=== PATIENT | male | born 1945 | race Caucasian/White ===

== ENCOUNTER 2017-10-26 05:56 | Day surgery (SDC) | payer MEDICARE ==
[~2017-10-26] VITALS: Ht 182.9 cm; Wt 103.0 kg
[~2017-10-26 05:56] MED LIST: ALLO300 PO; ATOR40TA PO; Aspirin EC81 MG PO; CLOP75 PO; Fluocinonide-E15 GM TOP; LISI5 PO; METF500 PO; METOPROLOL TART75 MG PO; Nitrostat0.4 MG SL; PANT40 PO; ZYRTEC10 M2 PO
[2017-10-26] MEDS ORDERED: LOSA50 PO (06:45)
== END 2017-10-27 00:10 | disposition home or self-care (01) ==
LOC: ORSCMMR 05:56
PROVIDERS: Surgery
PROC: 0YU50JZ Supplement Right Inguinal Region with Synthetic Substitute, Open Approach (ICD-10-PCS; principal; 2017-10-26 07:30)
DX: K40.90 Unilateral inguinal hernia, without obstruction or gangrene, not specified as recurrent (principal); I10 Essential (primary) hypertension; I25.10 Atherosclerotic heart disease of native coronary artery without angina pectoris; E78.5 Hyperlipidemia, unspecified; E11.9 Type 2 diabetes mellitus without complications; N40.0 Benign prostatic hyperplasia without lower urinary tract symptoms; Z79.82 Long term (current) use of aspirin; Z79.84 Long term (current) use of oral hypoglycemic drugs; Z79.899 Other long term (current) drug therapy
CPT/HCPCS: 82947; C1781; J0690; J1100; J1885; J2250; J2405; J7120

== ENCOUNTER 2017-11-19 19:25 | Observation (INO) | payer MEDICARE ==
[~2017-11-19] VITALS: Ht 182.9 cm; Wt 96.5 kg
[~2017-11-19 19:25] MED LIST changes: +LOSA50 PO
[2017-11-19 20:04] LABS: BASOPHILS ABSOLUTE AUTO 0.02 K/mm3 (0.00-0.23); BASOPHILS PERCENT AUTO 0 % (0-2); EOSINOPHILS ABSOLUTE AUTO 0.19 K/mm3 (0.00-0.68); EOSINOPHILS PERCENT AUTO 3 % (0-6); Hematocrit 39.1 % (37.0-53.0); Hemoglobin 13.4 g/dL (13.5-17.5); IMMATURE GRAN ABSOLUTE AUTO 0.03 K/mm3 (0.00-0.10); IMMATURE GRAN PERCENT AUTO 1 % (0-1); LYMPHOCYTES ABSOLUTE AUTO 1.33 K/mm3 (0.84-5.20); LYMPHOCYTES PERCENT AUTO 24 % (21-46); MONOCYTES ABSOLUTE AUTO 0.59 K/mm3 (0.16-1.47); MONOCYTES PERCENT AUTO 10 % (4-13); Mean Corpuscular HGB 30.2 pg (26.0-34.0); Mean Corpuscular HGB Conc 34.3 g/dL (31.5-36.5); Mean Corpuscular Volume 88 fL (80-100); Mean Platelet Volume 8.4 fL (9.1-12.4); NEUTROPHILS ABSOLUTE AUTO 3.49 K/mm3 (1.96-9.15); NEUTROPHILS PERCENT AUTO 62 % (41-73); Platelet Count 279 K/mm3 (150-400); RDW Coefficient Variation 14.6 % (11.7-14.2); RDW Standard Deviation 46.6 fL (35.1-46.3); Red Blood Cell Count 4.43 M/mm3 (4.30-5.90); White Blood Cell Count 5.65 K/mm3 (4.00-11.30)
[2017-11-19 20:21] LABS: Troponin I <0.015 ng/mL (0.000-0.040)
[2017-11-19 20:29] LABS: Alanine Aminotransfer (ALT/SGP 42 U/L (12-78); Albumin, Blood 3.8 g/dL (3.4-5.0); Albumin/Globulin Ratio 0.9 (0.8-1.8); Alk Phos 96 U/L (50-136); Anion Gap 8 mmol/L (6-16); Aspartate Aminotrans (AST/SGOT 28 U/L (12-37); Bilirubin, Total 0.5 mg/dL (0.1-1.0); Blood Urea Nitrogen 18 mg/dL (8-24); Bun/Creatinine Ratio 15.5 (12.0-20.0); CO2, Blood 25 mmol/L (21-32); Calcium, Blood 8.6 mg/dL (8.5-10.1); Chloride, Blood 103 mmol/L (98-108); Creatinine, Blood 1.16 mg/dL (0.60-1.20); Globulin, Blood 4.3 g/dL (2.2-4.0); Glomerular Filtration Rate >60 (60-); Glucose, Blood 145 mg/dL (70-99); Potassium, Blood 3.9 mmol/L (3.5-5.5); Sodium, Blood 136 mmol/L (136-145); Total Protein, Blood 8.1 g/dL (6.4-8.2)
[2017-11-20] MEDS ORDERED: AMLO10 PO (10:52)
== END 2017-11-20 11:45 | disposition home or self-care (01) ==
LOC: ER 19:25 → MEDS 19:26 → ER 19:26 → MEDS 19:26 → ENPENDDIS 11-20 10:21 → MEDS 11-20 11:45
PROVIDERS: Emergency Medicine
DX: R07.9 Chest pain, unspecified (principal); I25.10 Atherosclerotic heart disease of native coronary artery without angina pectoris; I25.2 Old myocardial infarction; E78.5 Hyperlipidemia, unspecified; E11.9 Type 2 diabetes mellitus without complications; G45.9 Transient cerebral ischemic attack, unspecified; I16.0 Hypertensive urgency; I71.4 Abdominal aortic aneurysm, without rupture; Z79.899 Other long term (current) drug therapy; Z86.010 Personal history of colon polyps; Z85.46 Personal history of malignant neoplasm of prostate; Z90.49 Acquired absence of other specified parts of digestive tract; Z98.890 Other specified postprocedural states; Z98.42 Cataract extraction status, left eye; Z95.5 Presence of coronary angioplasty implant and graft; Z92.3 Personal history of irradiation; Z82.49 Family history of ischemic heart disease and other diseases of the circulatory system; Z88.2 Allergy status to sulfonamides; Z88.1 Allergy status to other antibiotic agents; Z88.8 Allergy status to other drugs, medicaments and biological substances; Z79.84 Long term (current) use of oral hypoglycemic drugs; Z79.02 Long term (current) use of antithrombotics/antiplatelets; Z79.82 Long term (current) use of aspirin
CPT/HCPCS: 36415; 70450; 71046; 80053; 82947; 83880; 84484; 85025; 93005; 93010; 96361; 96374; 96375; 99285; G0378; J0360; J7030

== ENCOUNTER 2019-10-13 15:15 | Inpatient (IN) | payer MEDICARE ==
[~2019-10-13] VITALS: Ht 182.9 cm; Wt 80.6 kg
[~2019-10-13 15:15] MED LIST changes: +AMLO10 PO
[2019-10-13] MEDS ORDERED: EZET10 PO (15:45)
[2019-10-13 15:53] LABS: BASOPHILS ABSOLUTE AUTO 0.08 K/mm3 (0.00-0.23); BASOPHILS PERCENT AUTO 1 % (0-2); EOSINOPHILS ABSOLUTE AUTO 2.66 K/mm3 (0.00-0.68); EOSINOPHILS PERCENT AUTO 21 % (0-6); Hematocrit 35.6 % (37.0-53.0); Hemoglobin 11.1 g/dL (13.5-17.5); IMMATURE GRAN ABSOLUTE AUTO 0.05 K/mm3 (0.00-0.10); IMMATURE GRAN PERCENT AUTO 0 % (0-1); LYMPHOCYTES ABSOLUTE AUTO 0.87 K/mm3 (0.84-5.20); LYMPHOCYTES PERCENT AUTO 7 % (21-46); MONOCYTES ABSOLUTE AUTO 0.85 K/mm3 (0.16-1.47); MONOCYTES PERCENT AUTO 7 % (4-13); Mean Corpuscular HGB 25.7 pg (26.0-34.0); Mean Corpuscular HGB Conc 31.2 g/dL (31.5-36.5); Mean Corpuscular Volume 82 fL (80-100); Mean Platelet Volume 8.5 fL (9.1-12.4); NEUTROPHILS ABSOLUTE AUTO 8.41 K/mm3 (1.96-9.15); NEUTROPHILS PERCENT AUTO 65 % (41-73); Platelet Count 483 K/mm3 (150-400); RDW Standard Deviation 42.4 fL (35.1-46.3); Red Blood Cell Count 4.32 M/mm3 (4.30-5.90); White Blood Cell Count 12.92 K/mm3 (4.00-11.30)
[2019-10-13] MEDS ORDERED: Lopressor 50 mg50 MG PO (16:06)
[2019-10-13] MEDS ORDERED: LOSARTAN POTAS100 MG PO (16:06)
[2019-10-13] MEDS ORDERED: EZETIMIBE10 MG PO (16:07)
[2019-10-13] MEDS ORDERED: ATOR80 PO (16:08)
[2019-10-13] MEDS ORDERED: Metformin HCl1000 MG PO (16:08)
[2019-10-13] MEDS ORDERED: VITAMIN B-121000 MCG (16:09)
[2019-10-13] MEDS ORDERED: VITAMIN B-121000 MCG PO (16:09)
[2019-10-13 16:13] LABS: Alanine Aminotransfer (ALT/SGP 12 U/L (12-78); Albumin, Blood 2.8 g/dL (3.4-5.0); Anion Gap 9 mmol/L (6-16); Aspartate Aminotrans (AST/SGOT 21 U/L (12-37); Blood Urea Nitrogen 10 mg/dL (8-24); Bun/Creatinine Ratio 8.5 (12.0-20.0); CO2, Blood 27 mmol/L (21-32); Chloride, Blood 102 mmol/L (98-108); Creatinine, Blood 1.17 mg/dL (0.60-1.20); Glomerular Filtration Rate >60 (60-); Glucose, Blood 176 mg/dL (70-99); Potassium, Blood 2.9 mmol/L (3.5-5.5); Sodium, Blood 138 mmol/L (136-145)
[2019-10-13 16:14] LABS: Albumin/Globulin Ratio 0.6 (0.8-1.8); Alk Phos 119 U/L (50-136); Bilirubin, Total 0.6 mg/dL (0.1-1.0); Globulin, Blood 4.8 g/dL (2.2-4.0); International Normalized Ratio 1.19; Prothrombin Time Results 12.6 Sec (9.7-11.5); Total Protein, Blood 7.6 g/dL (6.4-8.2)
[2019-10-13 16:16] LABS: Magnesium, Blood 1.7 mg/dL (1.6-2.4)
[2019-10-13 19:13] LABS: Source, Urine Catheter
[2019-10-13 19:16] LABS: Appearance, Urine Clear (Clear); Bilirubin, Urine Neg (Neg); Blood, Urine Neg (Neg); Color, Urine Yellow (P-Yellow); Glucose Qualitative, Urine Neg (Neg); Ketones, Urine Neg (Neg); Leukocyte Esterase, Urine Neg (Neg); Nitrite, Urine Neg (Neg); Protein, Urine Neg (Neg); Specific Gravity, Urine 1.005 (1.003-1.022); Urobilinogen, Urine NORM (Normal)
[2019-10-13] MEDS ORDERED: Fluocinonide-E15 GM TOP (21:20)
[2019-10-13] MEDS ORDERED: PROC5 PO (21:22)
[2019-10-13] MEDS ORDERED: CLIN300 PO (21:24)
[2019-10-13] MEDS ORDERED: ONDA4 PO (21:25)
[2019-10-13] MEDS ORDERED: TADA10TA PO (21:26)
[2019-10-13] MEDS ORDERED: FISH OIL 1,001000 MG PO (21:28)
--- NOTE | 2019-10-13 23:29 | NUR ---
2622 PHSYCIAN CORRESPONDENCE PATIENT STATING THAT HE WOULD LIKE TO TAKE HIS NORMAL NIGHT TIME MEDICATIONS. ON-CALL STATED TO ALLOW HIM TO TAKE THIS EVENING.
[2019-10-14 02:25] LABS: Adenovirus Not Detected (NOT DETECT); Bordetella pertussis Not Detected (NOT DETECT); Chlamydophila pneumoniae Not Detected (NOT DETECT); Coronavirus 229E Not Detected (NOT DETECT); Coronavirus HKU1 Not Detected (NOT DETECT); Coronavirus NL63 Not Detected (NOT DETECT); Coronavirus OC43 Not Detected (NOT DETECT); Human Metapneumovirus Not Detected (NOT DETECT); Human Rhinovirus/Enterovirus Not Detected (NOT DETECT); Influenza A Not Detected (NOT DETECT); Influenza A/2009-H1 Not Detected (NOT DETECT); Influenza A/H1 Not Detected (NOT DETECT); Influenza A/H3 Not Detected (NOT DETECT); Influenza B Not Detected (NOT DETECT); Mycoplasma pneumoniae Not Detected (NOT DETECT); Parainfluenza Virus 1 Not Detected (NOT DETECT); Parainfluenza Virus 2 Not Detected (NOT DETECT); Parainfluenza Virus 3 Not Detected (NOT DETECT); Parainfluenza Virus 4 Not Detected (NOT DETECT); Respiratory Syncytial Virus Not Detected (NOT DETECT)
[2019-10-14 05:39] LABS: Hematocrit 29.8 % (37.0-53.0); Hemoglobin 9.1 g/dL (13.5-17.5); Mean Corpuscular HGB 25.2 pg (26.0-34.0); Mean Corpuscular HGB Conc 30.5 g/dL (31.5-36.5); Mean Corpuscular Volume 83 fL (80-100); Mean Platelet Volume 8.7 fL (9.1-12.4); Platelet Count 390 K/mm3 (150-400); RDW Coefficient Variation 14.2 % (11.7-14.2); RDW Standard Deviation 42.7 fL (35.1-46.3); Red Blood Cell Count 3.61 M/mm3 (4.30-5.90); White Blood Cell Count 9.84 K/mm3 (4.00-11.30)
[2019-10-14 06:06] LABS: Anion Gap 7 mmol/L (6-16); Blood Urea Nitrogen 8 mg/dL (8-24); Bun/Creatinine Ratio 7.6 (12.0-20.0); CO2, Blood 26 mmol/L (21-32); Chloride, Blood 109 mmol/L (98-108); Creatinine, Blood 1.05 mg/dL (0.60-1.20); Glomerular Filtration Rate >60 (60-); Glucose, Blood 107 mg/dL (70-99); Potassium, Blood 3.3 mmol/L (3.5-5.5); Sodium, Blood 142 mmol/L (136-145)
--- NOTE | 2019-10-14 07:51 | NUR ---
SHIFT SUMMARY RECIEVED REPORT FROM [facility]. ARRIVED TO MEDICAL FLOOR VIA STRETCHER; TRANSFER WITH MINIMAL ASSISTANCE. ORIENTED TO ROOM AND CALL SYSTEM. A/O, ABLE TO MAKE NEEDS KNOWN. COOPERATIVE WITH CARE. CALLS AND ANSWERS QUESTIONS APPROPRIATELY. BP ELEVATED; PATIENT STATED HAD NOT TAKEN ANY OF HIS BLOOD PRESSURE MEDICATIONS THIS DAY. IV RUNNING LR CONTINUOUSLY WITHOUT COMPLICATIONS. TELEMETRY RUNNING SR /c BBB IN 90'S PER PE TEACHER. APPEARED TO REST OFF AND ON THROUGHOUT SHIFT. C/O COUGH; RECIEVED NEW ORDER FOR ROBITUSSIN. CONTINUED TO MONITOR THROUGHOUT SHIFT. BED IN LOWEST POSITION. CALL LIGHT AND BELONINGS WITHIN REACH. REPORT GIVEN TO ONCOMING RN.
--- NOTE | 2019-10-14 12:46 | NUR ---
Patient is sitting on a chair and alert. Patient is pleasant and is a great hander in. 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 Patient has solid support systems from family and sikh and a positive outlook on illness. No spiritual distress is detected. I listen empathically, reinforce helpful attitudes and practices and provide companionship and prayer. Patient responds well and shows signs of an elevated mood. I will continue to remain available to patient and family.
--- NOTE | 2019-10-14 14:25 | NUR ---
Permission for care given to nursing home admissions director at 14:20
--- NOTE | 2019-10-14 16:02 | NUR ---
ADVISED PATIENT DOES NOT TAKE; METFORMIN, ZETIA OR VIT B12 ANY MORE. B12 GIVEN THIS AM AFTER CONVERSATION WITH PATIENT AND HE WAS AGREEABLE.
--- NOTE | 2019-10-14 16:06 | NUR ---
ALERT. ORIENTED. EXERTIONAL SOB. IV X 2 PATENT. PLEASANT. DENIES PAIN. TELE ON AND PER PCU SR W/BBB AT 77. WCTM
[2019-10-15 05:38] LABS: BASOPHILS ABSOLUTE AUTO 0.06 K/mm3 (0.00-0.23); BASOPHILS PERCENT AUTO 1 % (0-2); EOSINOPHILS ABSOLUTE AUTO 3.09 K/mm3 (0.00-0.68); EOSINOPHILS PERCENT AUTO 33 % (0-6); Hematocrit 30.2 % (37.0-53.0); Hemoglobin 9.4 g/dL (13.5-17.5); IMMATURE GRAN ABSOLUTE AUTO 0.04 K/mm3 (0.00-0.10); IMMATURE GRAN PERCENT AUTO 0 % (0-1); LYMPHOCYTES ABSOLUTE AUTO 0.66 K/mm3 (0.84-5.20); LYMPHOCYTES PERCENT AUTO 7 % (21-46); MONOCYTES ABSOLUTE AUTO 0.63 K/mm3 (0.16-1.47); MONOCYTES PERCENT AUTO 7 % (4-13); Mean Corpuscular HGB 25.4 pg (26.0-34.0); Mean Corpuscular HGB Conc 31.1 g/dL (31.5-36.5); Mean Corpuscular Volume 82 fL (80-100); Mean Platelet Volume 8.7 fL (9.1-12.4); NEUTROPHILS ABSOLUTE AUTO 4.91 K/mm3 (1.96-9.15); NEUTROPHILS PERCENT AUTO 52 % (41-73); Platelet Count 400 K/mm3 (150-400); RDW Standard Deviation 41.4 fL (35.1-46.3); White Blood Cell Count 9.39 K/mm3 (4.00-11.30)
[2019-10-15 06:03] LABS: Alanine Aminotransfer (ALT/SGP 12 U/L (12-78); Albumin, Blood 2.1 g/dL (3.4-5.0); Albumin/Globulin Ratio 0.6 (0.8-1.8); Alk Phos 89 U/L (50-136); Anion Gap 6 mmol/L (6-16); Aspartate Aminotrans (AST/SGOT 19 U/L (12-37); Bilirubin, Total 0.4 mg/dL (0.1-1.0); Blood Urea Nitrogen 8 mg/dL (8-24); Bun/Creatinine Ratio 7.6 (12.0-20.0); CO2, Blood 28 mmol/L (21-32); Calcium, Blood 7.9 mg/dL (8.5-10.1); Chloride, Blood 106 mmol/L (98-108); Creatinine, Blood 1.05 mg/dL (0.60-1.20); Globulin, Blood 3.7 g/dL (2.2-4.0); Glomerular Filtration Rate >60 (60-); Glucose, Blood 122 mg/dL (70-99); Magnesium, Blood 1.5 mg/dL (1.6-2.4); Sodium, Blood 140 mmol/L (136-145); Total Protein, Blood 5.8 g/dL (6.4-8.2)
[2019-10-15 06:04] LABS: BASOPHILS PERCENT MAN 0 % (0-2); EOSINOPHILS ABSOLUTE MAN 3.56 K/mm3 (0.00-0.68); EOSINOPHILS PERCENT MAN 38 % (0-6); LYMPHOCYTES ABSOLUTE MAN 0.56 K/mm3 (0.84-5.20); LYMPHOCYTES PERCENT MAN 6 % (21-46); MONOCYTES ABSOLUTE MAN 0.46 K/mm3 (0.16-1.47); MONOCYTES PERCENT MAN 5 % (4-13); NEUTROPHILS ABSOLUTE MAN 4.78 K/mm3 (1.96-9.15); SEG NEUTROPHILS PERCENT MAN 51 % (41-73); TOTAL CELLS COUNTED 100
[2019-10-15 06:08] LABS: Percent Saturation 11.3 % (20.0-50.0)
--- NOTE | 2019-10-15 06:45 | NUR ---
SHIFT SUMMARY AOX4. DENIES PAIN, N/V, OR DYSPNEA. AT BEGINNING OF SHIFT PT ASKED IF IT WAS POSSIBLE TO REMOVE O2 & IF HE NEEDED IT. I TURNED O2 DOWN TO 1L & PT SPO2 @94%, TRIED NO O2 & CHECKED SPO2 WAS @85%, REPLACED 1L O2 ON. LATER SPO2 WAS RECHECKED & SATS WOULD NOT INCREASE OVER 88% ON 1L, THEREFORE INCREASED O2 BACK TO 2L. TELE IN PLACE NSR W/BBB @85. REPORTED CONSTANT DRY COUGH, INFORMED HOSPITALIST & THEY ORDERED KACY ROMAN, PT STATED RELIEF. CALL LIGHT IN REACH.
--- NOTE | 2019-10-15 17:58 | NUR ---
No acute changes noted, patient reports still not feeling well this shift. No current complaints of pain or discomfort noted. Patient on O2 @ 2 liters via nasal canula. No other issues noted at this time. Will continue to monitor for changes.
--- NOTE | 2019-10-15 20:40 | NUR ---
AL IS PLEASANT AND COOPERATIVE. STATES HE HAS HAD BETTER DAYS, JUST WANTS TO GET BETTER AND OUT OF THE HOSPITAL. IV DONE INFUSING, SL. STATES PAIN TO THE RIGHT SIDE OF THE CHEST FROM COUGHING. COUGH IS OCCATIONAL BUT NO PRODUCTION AT THIS TIME. IS ABLE TO GET UP AND AMBULATE BUT CAUSES HIS SATS TO DROP IN THE HIGH 80'S. IF HE TAKES HIS OXYGEN OFF IT DROPS TO LOW 80'S. ENCOURAGED HIM TO SPLIT WHILE COUGHING. CALL LIGHT IN REACH, WILL CONTINUE TO MONITOR.
--- NOTE | 2019-10-16 02:02 | NUR ---
AL HAS HAD A COUPLE OF COUGHING SPELLS. HE STATES THAT HE FEELS THERE IS A RIB ON THE RIGHT SIDE THAT IS VERY DISCOMFORTABLE. BEFORE IT WOULD ONLY HURT WHEN HE COUGHS AND NOW IT IS WHEN HE BREATHS. EDUCATED ON HOW COUGHING CAN CAUSE PAIN. OFFERED HIM A HEATING PAD TO HELP WITH THE DISCOMFORT. WILL SEE IF THIS WORKS.
[2019-10-16 05:29] LABS: BASOPHILS ABSOLUTE AUTO 0.06 K/mm3 (0.00-0.23); BASOPHILS PERCENT AUTO 1 % (0-2); EOSINOPHILS ABSOLUTE AUTO 3.25 K/mm3 (0.00-0.68); EOSINOPHILS PERCENT AUTO 29 % (0-6); Hematocrit 27.5 % (37.0-53.0); Hemoglobin 8.6 g/dL (13.5-17.5); IMMATURE GRAN ABSOLUTE AUTO 0.03 K/mm3 (0.00-0.10); IMMATURE GRAN PERCENT AUTO 0 % (0-1); LYMPHOCYTES ABSOLUTE AUTO 0.72 K/mm3 (0.84-5.20); LYMPHOCYTES PERCENT AUTO 7 % (21-46); MONOCYTES ABSOLUTE AUTO 0.71 K/mm3 (0.16-1.47); MONOCYTES PERCENT AUTO 6 % (4-13); Mean Corpuscular HGB 25.2 pg (26.0-34.0); Mean Corpuscular HGB Conc 31.3 g/dL (31.5-36.5); Mean Corpuscular Volume 81 fL (80-100); Mean Platelet Volume 8.8 fL (9.1-12.4); NEUTROPHILS PERCENT AUTO 57 % (41-73); Platelet Count 348 K/mm3 (150-400); RDW Coefficient Variation 14.2 % (11.7-14.2); RDW Standard Deviation 41.5 fL (35.1-46.3); Red Blood Cell Count 3.41 M/mm3 (4.30-5.90); White Blood Cell Count 11.07 K/mm3 (4.00-11.30)
--- NOTE | 2019-10-16 05:38 | NUR ---
SHIFT SUMMARY: CEASAR VS HAVE REMAINED STABLE. PAIN HAS INCREASED TO THE RIGHT SIDE RIB CAGE OVER NIGHT. STATES HE FEELS HE BROKE A RIB. HEAT WAS APPLIED TO AREA, ALONG WITH SPLINTING AND TYLENOL. THIS ALLOWED SLEEP TO OCCUR FOR SEVERAL HOURS. IV REMAINED PATENT AND INFUSED ANTIBOTICS WITH NO PROBLEMS. PATIENT INDEPENDENT IN THE ROOM. LUNG SOUNDS STILL COURSE, OXYGEN SATS DECREASE WITH EXERTION BUT REMAIN IN THE 90'S WHILE IN BED RESTING. ENCOURAGED DEEP BREATHING EXERCISES. CALL LIGHT REMAINED IN REACH. WILL REPORT CHANGES TO DAY SHIFT.
[2019-10-16 05:49] LABS: Alanine Aminotransfer (ALT/SGP 12 U/L (12-78); Albumin/Globulin Ratio 0.6 (0.8-1.8); Alk Phos 96 U/L (50-136); Anion Gap 9 mmol/L (6-16); Aspartate Aminotrans (AST/SGOT 16 U/L (12-37); Bilirubin, Total 0.5 mg/dL (0.1-1.0); Blood Urea Nitrogen 6 mg/dL (8-24); Bun/Creatinine Ratio 5.8 (12.0-20.0); CO2, Blood 25 mmol/L (21-32); Calcium, Blood 8.1 mg/dL (8.5-10.1); Chloride, Blood 105 mmol/L (98-108); Creatinine, Blood 1.03 mg/dL (0.60-1.20); Globulin, Blood 3.6 g/dL (2.2-4.0); Glomerular Filtration Rate >60 (60-); Glucose, Blood 107 mg/dL (70-99); Potassium, Blood 3.3 mmol/L (3.5-5.5); Sodium, Blood 139 mmol/L (136-145); Total Protein, Blood 5.6 g/dL (6.4-8.2)
--- NOTE | 2019-10-16 16:52 | NUR ---
Echocardiogram completed.
--- NOTE | 2019-10-16 17:37 | NUR ---
SHIFT SUMMARY PT AXO, PLEASANT AND COOPERATIVE WITH CARE. PT RUNNING SINUS TACH WITH BBB AT 116 PER TECH. DIARRHEA THIS SHIFT X4. IV PATENT AND INFUSING PER EMAR AT THIS TIME. CHAPLAIN LEES CALLED BECAUSE PATIENT STATED THAT HE WAS FEELING DOWN TODAY. PT MEDICATED FOR COUGH PER EMAR. BED IN LOW POSITION, CALL LIGHT WITHIN REACH.
--- NOTE | 2019-10-16 19:39 | NUR ---
CEASAR STATES HE IS FEELING JUST SLIGHTLY BETTER. THE PAIN IN HIS SIDE IS STILL PRESENT BUT DOES NOT HURT MUCH. HE IS ABLE TO BREATH BETTER THEN HE WAS LAST NIGHT. HE IS CURRENTLY NOT USING THE HEATING PAD. LUNG SOUNDS ARE DIMINISHED ON THE RIGHT AND COURSE ON THE LEFT. COUGH IS STILL NOT PRODUCTIVE. HE IS ABLE TO MOVE AROUND A LITTLE EASIER BUT STILL HAS DYSPNEA WITH EXERTION AND DROPS IN SATS IF OXYGEN IS OFF. ENCOURAGE DEEP BREATHING EXERCISES. HE ALSO HAS LOOSE STOOLS STATES HE HAS HAD 4 TODAY. ASKING FOR IMMODIUM. WILL CALL MD FOR ORDER.
--- NOTE | 2019-10-16 20:30 | NUR ---
CALL PLACED TO HOSPIALIST CLARA RIOJAS AT 2030. INFORMED OF LOOSE STOOLS X SEVERAL DAYS. SHE STATES IT IS PAST THE TIME PERIODS FOR A SAMPLE. ORDER RECEIVED FOR IMMODIUM.
--- NOTE | 2019-10-17 04:25 | NUR ---
SHIFT SUMMARY: CEASAR IS DOING BETTER TONIGHT, COUGH HAS SUBSIDED SOME WITH THE HELP OF TESSALON ALEX'S. PAIN IN THE RIGHT SIDE CHEST WALL IS AVERAGING 2-3. STILL ON 2 LITERS OF O2 WITH SATS REMAINING IN THE 90'S. LUNG SOUNDS ARE COURSE ON THE LEFT SIDE AND DIMINISHED ON THE RIGHT. STILL INDEPENDENT IN THE ROOM. STOOLS REMAIN LOOSE. CLARA MINE DEPUTY NOTIFIED, NO ORDER FOR STOOL SAMPLE STATES PASS THE TIME PERIOD. IMMODIUM WAS ORDERED PRN. IV INFUSED ANTIBOTICS WITH NO PROBLEMS. SLEPT MOST OF THE NIGHT COMFORTABLY. VS STABLE. CALL LIGHT IN REACH AND USED APPROPRIATLY.
[2019-10-17 05:21] LABS: BASOPHILS ABSOLUTE AUTO 0.06 K/mm3 (0.00-0.23); BASOPHILS PERCENT AUTO 1 % (0-2); EOSINOPHILS ABSOLUTE AUTO 3.59 K/mm3 (0.00-0.68); EOSINOPHILS PERCENT AUTO 35 % (0-6); Hematocrit 27.1 % (37.0-53.0); Hemoglobin 8.6 g/dL (13.5-17.5); IMMATURE GRAN ABSOLUTE AUTO 0.03 K/mm3 (0.00-0.10); IMMATURE GRAN PERCENT AUTO 0 % (0-1); LYMPHOCYTES ABSOLUTE AUTO 0.74 K/mm3 (0.84-5.20); LYMPHOCYTES PERCENT AUTO 7 % (21-46); MONOCYTES ABSOLUTE AUTO 0.79 K/mm3 (0.16-1.47); MONOCYTES PERCENT AUTO 8 % (4-13); Mean Corpuscular HGB 25.5 pg (26.0-34.0); Mean Corpuscular HGB Conc 31.7 g/dL (31.5-36.5); Mean Corpuscular Volume 80 fL (80-100); Mean Platelet Volume 8.4 fL (9.1-12.4); NEUTROPHILS PERCENT AUTO 50 % (41-73); Platelet Count 356 K/mm3 (150-400); RDW Coefficient Variation 14.2 % (11.7-14.2); RDW Standard Deviation 41.7 fL (35.1-46.3); Red Blood Cell Count 3.37 M/mm3 (4.30-5.90); White Blood Cell Count 10.41 K/mm3 (4.00-11.30)
[2019-10-17 05:56] LABS: Anion Gap 5 mmol/L (6-16); Blood Urea Nitrogen 8 mg/dL (8-24); Bun/Creatinine Ratio 7.8 (12.0-20.0); CO2, Blood 28 mmol/L (21-32); Calcium, Blood 8.4 mg/dL (8.5-10.1); Chloride, Blood 106 mmol/L (98-108); Creatinine, Blood 1.02 mg/dL (0.60-1.20); Glomerular Filtration Rate >60 (60-); Glucose, Blood 110 mg/dL (70-99); Magnesium, Blood 1.8 mg/dL (1.6-2.4); Potassium, Blood 3.1 mmol/L (3.5-5.5); Sodium, Blood 139 mmol/L (136-145)
--- NOTE | 2019-10-17 10:19 | NUR ---
PATIENT HAD A BOWEL MOVEMENT THIS MORNING, HE STATES THAT HE HAS HAD DIARRHEA THE LAST 24 HOURS. HIS BOWEL MOVEMENT THIS MORNING WAS BROWN/GREEN, SOFT BUT FORMED. NO DIARRHEA. ALTHOUGH THE PATIENT DID REQUEST IMMODIUM. HE WAS GIVEN A 2MG DOSE OF IMMODIUM, AND PATIENT DENIES ANY CONCERNS FROM THERE. HE IS VERY CONCERNED ABOUT HIS BOWELS. I EXPRESSED WITH THE PATIENT THAT HE IS GETTING ORAL AND IV ANTIBIOTICS AND THESE COULD CAUSE DIARRHEA, ESPECIALLY IF HE IS NOT EATING ENOUGH.
--- NOTE | 2019-10-17 13:23 | NUR ---
Patient is sitting up in bed and alert. Patient tells me about his spiritual distress and the concerns that center around his medical issues. I listen epathically and provide pastoral senior vice president & general counsel and prayer. Patient responds well and shows signs of restored juan. Patient voices gratitude the visit. I will continue to remain available to patient and family.
--- NOTE | 2019-10-17 18:14 | NUR ---
SHIFT SUMMARY PATIENT IS PLEASANT, ALERT AND ORIENTED. VERY CONCERNED THAT HE IS NOT FEELING BETTER. IS CONCERNED THAT HE IS NOT EATING MUCH. HAD AN IN DEPTH CONVERSATION WITH THE PATIENT ABOUT HIS NEED TO EAT IN ORDER TO KEEP DOWN HIS MEDICATIONS. NO ACUTE CONCERNS AT THIS TIME. IS AT THE BEDSIDE. HE IS INDEPENDENT IN THE ROOM.
--- NOTE | 2019-10-17 19:40 | NUR ---
AL IS SITTING UP IN BED WATCHING TV. STATES COUGH HAS STARTED TO BE PRODUCTIVE BUT HAS NOT SPIT OUT ANYTHING HE ENDS UP SWALLOWING IT. ENCOURAGE HIM TO SPIT IT OUT SO WE CAN LOOK AT COLOR AND POSSIBLE SAMPLE. PAIN IN SIDE IS IMPROVED. STATES STOOLS ARE LOOSE BUT DAY SHIFT STATES THEY ARE MORE FORMED THEN LOOSE. HAD DINNER TRAY IN ROOM APPEITE HAS BEEN POOR. ENCOURAGE TO EAT A LITTLE MORE BEFORE HE TAKES NIGHT MEDS. HE SAID HE WILL TRY. CALL LIGHT IN REACH.
[2019-10-18 04:54] LABS: BASOPHILS ABSOLUTE AUTO 0.06 K/mm3 (0.00-0.23); BASOPHILS PERCENT AUTO 1 % (0-2); EOSINOPHILS ABSOLUTE AUTO 3.89 K/mm3 (0.00-0.68); EOSINOPHILS PERCENT AUTO 36 % (0-6); Hematocrit 29.3 % (37.0-53.0); IMMATURE GRAN ABSOLUTE AUTO 0.05 K/mm3 (0.00-0.10); IMMATURE GRAN PERCENT AUTO 1 % (0-1); LYMPHOCYTES ABSOLUTE AUTO 0.91 K/mm3 (0.84-5.20); LYMPHOCYTES PERCENT AUTO 8 % (21-46); MONOCYTES ABSOLUTE AUTO 0.91 K/mm3 (0.16-1.47); MONOCYTES PERCENT AUTO 8 % (4-13); Mean Corpuscular HGB 25.2 pg (26.0-34.0); Mean Corpuscular HGB Conc 30.7 g/dL (31.5-36.5); Mean Corpuscular Volume 82 fL (80-100); Mean Platelet Volume 8.6 fL (9.1-12.4); NEUTROPHILS ABSOLUTE AUTO 5.01 K/mm3 (1.96-9.15); NEUTROPHILS PERCENT AUTO 46 % (41-73); Platelet Count 370 K/mm3 (150-400); RDW Coefficient Variation 14.3 % (11.7-14.2); RDW Standard Deviation 42.8 fL (35.1-46.3); Red Blood Cell Count 3.57 M/mm3 (4.30-5.90); White Blood Cell Count 10.83 K/mm3 (4.00-11.30)
--- NOTE | 2019-10-18 05:07 | NUR ---
SHIFT SUMMARY: AL HAD A NORMAL NIGHT. FIRST VITALS WERE ELEVATED WITH INCREASE IN RESPIRATIONS AND BLOOD PRESSURE. THIS WAS POSSIBLY DUE TO COUGHING SPELL AND GETTING UP TO THE BATHROOM. REPEAT VITALS NORMAL FOR PATIENT. IV INFUSED ANTIBOTICS WITH NO PROBLEMS. PAIN TOLERABLE WITH NO PAIN NEEDED. ABLE TO GET UP TO BATHROOM INDEPENDENT. TELEMETRY CONTINUES WITH SINUS TACH AND BBB. COUGH IS LESS TODAY THEN PREVIOUS NIGHTS, STILL NO PRODUCTION OUT, ONLY UP AND HE SWALLOWS. NO NAUSEA THIS SHIFT. BM NONE REPORTED THIS SHIFT. CALL LIGHT REMAINED IN REACH AND USED APPROPRIATLY.
[2019-10-18 05:31] LABS: Anion Gap 6 mmol/L (6-16); Blood Urea Nitrogen 7 mg/dL (8-24); Bun/Creatinine Ratio 6.6 (12.0-20.0); CO2, Blood 28 mmol/L (21-32); Calcium, Blood 8.4 mg/dL (8.5-10.1); Chloride, Blood 105 mmol/L (98-108); Creatinine, Blood 1.06 mg/dL (0.60-1.20); Glomerular Filtration Rate >60 (60-); Glucose, Blood 108 mg/dL (70-99); Potassium, Blood 3.2 mmol/L (3.5-5.5); Sodium, Blood 139 mmol/L (136-145)
--- NOTE | 2019-10-18 18:05 | NUR ---
SHIFT SUMMARY PATIENT PLESANT, ALERT AND ORIENTED. NO ACUTE CONCERNS AT THIS TIME. PATIENT HAS BEEN INDEPENDENT IN THE ROOM, HE HAS REPORTED HE HAS NOT FELT WELL AND VERY FATIGUED.
--- NOTE | 2019-10-19 03:36 | NUR ---
10/19/19 0239 AIRCRAFT LOADMASTER SUPERINTENDENT PAGED AND INFORMED OF PT HAVING 8 BEATS OF V.TACH AT 0221. PT ONLY C/O SLIGHT SOB AND COUGH " ALWAYS". DR CHE. STATED "JUST WATCH FOR NOW."
[2019-10-19 05:48] LABS: BASOPHILS ABSOLUTE AUTO 0.06 K/mm3 (0.00-0.23); BASOPHILS PERCENT AUTO 1 % (0-2); EOSINOPHILS ABSOLUTE AUTO 4.28 K/mm3 (0.00-0.68); EOSINOPHILS PERCENT AUTO 33 % (0-6); Hematocrit 24.5 % (37.0-53.0); Hemoglobin 7.7 g/dL (13.5-17.5); IMMATURE GRAN ABSOLUTE AUTO 0.06 K/mm3 (0.00-0.10); IMMATURE GRAN PERCENT AUTO 1 % (0-1); LYMPHOCYTES ABSOLUTE AUTO 0.93 K/mm3 (0.84-5.20); LYMPHOCYTES PERCENT AUTO 7 % (21-46); MONOCYTES ABSOLUTE AUTO 0.91 K/mm3 (0.16-1.47); MONOCYTES PERCENT AUTO 7 % (4-13); Mean Corpuscular HGB 25.6 pg (26.0-34.0); Mean Corpuscular HGB Conc 31.4 g/dL (31.5-36.5); Mean Corpuscular Volume 81 fL (80-100); Mean Platelet Volume 8.8 fL (9.1-12.4); NEUTROPHILS ABSOLUTE AUTO 6.64 K/mm3 (1.96-9.15); NEUTROPHILS PERCENT AUTO 52 % (41-73); Platelet Count 378 K/mm3 (150-400); RDW Coefficient Variation 14.5 % (11.7-14.2); RDW Standard Deviation 42.8 fL (35.1-46.3); Red Blood Cell Count 3.01 M/mm3 (4.30-5.90); White Blood Cell Count 12.88 K/mm3 (4.00-11.30)
[2019-10-19 06:15] LABS: Anion Gap 5 mmol/L (6-16); Blood Urea Nitrogen 7 mg/dL (8-24); Bun/Creatinine Ratio 7.2 (12.0-20.0); CO2, Blood 29 mmol/L (21-32); Calcium, Blood 8.2 mg/dL (8.5-10.1); Chloride, Blood 105 mmol/L (98-108); Creatinine, Blood 0.98 mg/dL (0.60-1.20); Glomerular Filtration Rate >60 (60-); Glucose, Blood 103 mg/dL (70-99); Potassium, Blood 3.3 mmol/L (3.5-5.5); Sodium, Blood 139 mmol/L (136-145)
--- NOTE | 2019-10-19 07:40 | NUR ---
10/19/19 0500 PT SLEEPING ON AND OFF. WAS UP TO BATHROOM FOR VOIDINGS AND BM'S. HEART MONITOR SHOWED TACHY IN 130-140'S WITH ACIVITY. HE HAD ONE RUN OF 8 BEATS OF V.TACH. ABOUT 0221. NO UNUSUAL S/S. RN INFORMED BURNER OPERATOR MD. NO NEW ORDERS.
--- NOTE | 2019-10-19 17:17 | NUR ---
PT AOX4 AND COOPERATIVE OF CARE. PT HAS SAT IN BED MOST OF THE DAY. PT DID GET A ONE PERSON ASSIST AND RECIEVE A SHOWER TODAY LATER IN THE AFTERNOON. PT OVER ALL HAS DONE WELL. SOB INCREASED WITH EXCERTION. PT WAS HAVING A COUGHING BOUGHT AND DR SANTIAGO NOTIFIED. DR SANTIAGO CHECKING TO SEE IF SHE CAN ADD ANYTHING TO EMAR. WILL CONTINUE TO MONITOR.
--- NOTE | 2019-10-20 04:55 | NUR ---
10/20/19 0455 PT SLEPT WELL THIS SHIFT. VITALS STABLE AND HEART RATE IN THE 70-80'S WHEN ASLEEP. NON-PRODUCTIVE COUGH AND UNABLE TO OBTAIN SPECIMEN. MEDICATED ONCE FOR SLIGHT NAUSEA WITH PM MEDS. NO COMPLAINTS THIS AM.
[2019-10-20 07:07] LABS: COMPLEMENT C3, SERUM 130 mg/dL (82-167); COMPLEMENT C4, SERUM 27 mg/dL (14-44)
[2019-10-20 08:09] LABS: Hematocrit 28.6 % (37.0-53.0); Hemoglobin 8.9 g/dL (13.5-17.5); Mean Corpuscular HGB 25.4 pg (26.0-34.0); Mean Corpuscular HGB Conc 31.1 g/dL (31.5-36.5); Mean Corpuscular Volume 82 fL (80-100); Mean Platelet Volume 8.7 fL (9.1-12.4); Platelet Count 387 K/mm3 (150-400); RDW Coefficient Variation 14.4 % (11.7-14.2); RDW Standard Deviation 42.6 fL (35.1-46.3); White Blood Cell Count 11.93 K/mm3 (4.00-11.30)
[2019-10-20 08:28] LABS: Alanine Aminotransfer (ALT/SGP 17 U/L (12-78); Albumin, Blood 1.8 g/dL (3.4-5.0); Albumin/Globulin Ratio 0.4 (0.8-1.8); Alk Phos 117 U/L (50-136); Anion Gap 7 mmol/L (6-16); Aspartate Aminotrans (AST/SGOT 32 U/L (12-37); Bilirubin, Total 0.3 mg/dL (0.1-1.0); Blood Urea Nitrogen 9 mg/dL (8-24); Bun/Creatinine Ratio 8.7 (12.0-20.0); CO2, Blood 27 mmol/L (21-32); Calcium, Blood 8.4 mg/dL (8.5-10.1); Chloride, Blood 105 mmol/L (98-108); Creatinine, Blood 1.04 mg/dL (0.60-1.20); Globulin, Blood 4.1 g/dL (2.2-4.0); Glomerular Filtration Rate >60 (60-); Glucose, Blood 94 mg/dL (70-99); Potassium, Blood 3.4 mmol/L (3.5-5.5); Sodium, Blood 139 mmol/L (136-145); Total Protein, Blood 5.9 g/dL (6.4-8.2)
[2019-10-20 08:34] LABS: BASOPHILS PERCENT MAN 0 % (0-2); EOSINOPHILS ABSOLUTE MAN 4.41 K/mm3 (0.00-0.68); EOSINOPHILS PERCENT MAN 37 % (0-6); LYMPHOCYTES ABSOLUTE MAN 0.59 K/mm3 (0.84-5.20); LYMPHOCYTES PERCENT MAN 5 % (21-46); MONOCYTES ABSOLUTE MAN 0.71 K/mm3 (0.16-1.47); MONOCYTES PERCENT MAN 6 % (4-13); SEG NEUTROPHILS PERCENT MAN 52 % (41-73); TOTAL CELLS COUNTED 100
--- NOTE | 2019-10-20 12:20 | NUR ---
BRONCHOSCOPY PER DR. CHANEY (VC++ DEVELOPER), PT IS TO BE NPO AFTER MIDNIGHT. BLOOD THINNERS TO BE HELD STARTING NOW (ASPIRIN AND LOVENOX). BRONCHOSCOPY SCHEDULED FOR TOMORROW 10/20/2019.
--- NOTE | 2019-10-20 12:50 | NUR ---
Patient is sitting up in bed and alert. Patient immediately tells me about the events of the weekend and earlier in the day and what is upcoming for him. He tells me his thoughts on what he would like to see happen medically. Patient also tells me stories of humorous events and near experiences. Patient seems to encourage himself as he talks. I listen empathically, reinforce helpful attitudes and practices and provide pastoral enrollment counselor and prayer. Patient responds well and displays evidence of an elevated mood. I will continue to remain available to patient and family.
--- NOTE | 2019-10-20 16:25 | NUR ---
PATIENT GAVE STUDENT NURSE PERMISSION TO PROVIDE CARE ON 10/20/2019.
--- NOTE | 2019-10-20 16:56 | NUR ---
Shift Summary A/Ox4, independent in room. Dr. Tolentino decreased O2 from 3L to 2L to maintain saturations at 90%; pt has been maintaining this so far. Continues to have nonproductive cough, denies pain with cough. Orders for NPO after midnight for bronchoscopy. Slight redness and skin thickening on coccyx, cream applied and recommended patient to change position frequently t/o day to relieve pressure off buttocks. has been at bedside for part of the day. No other concerns at this time. Will continue to monitor.
[2019-10-20 17:38] LABS: International Normalized Ratio 1.19; Prothrombin Time Results 12.6 Sec (9.7-11.5)
[2019-10-20 19:05] LABS: ANTI-DSDNA ANTIBODIES <1 IU/mL (0-9); RNP ANTIBODIES <0.2 AI (0.0-0.9); SJOGREN'S ANTI-SS-B <0.2 AI (0.0-0.9); SMITH ANTIBODIES <0.2 AI (0.0-0.9)
--- NOTE | 2019-10-21 06:36 | NUR ---
10/21/19 0630 NPO FOR PROCEDURE. AWAKENED FOR AM MEDS. HAD SOME NAUSEA THIS SHIFT AND WAS MEDICATED. HEART MONITOR STABLE AT SR IN THE 70-80'S WITH BBB.
[2019-10-21 08:26] LABS: BASOPHILS ABSOLUTE AUTO 0.07 K/mm3 (0.00-0.23); BASOPHILS PERCENT AUTO 1 % (0-2); EOSINOPHILS ABSOLUTE AUTO 4.53 K/mm3 (0.00-0.68); EOSINOPHILS PERCENT AUTO 35 % (0-6); Hemoglobin 9.4 g/dL (13.5-17.5); IMMATURE GRAN ABSOLUTE AUTO 0.04 K/mm3 (0.00-0.10); IMMATURE GRAN PERCENT AUTO 0 % (0-1); LYMPHOCYTES ABSOLUTE AUTO 1.49 K/mm3 (0.84-5.20); LYMPHOCYTES PERCENT AUTO 12 % (21-46); MONOCYTES ABSOLUTE AUTO 0.94 K/mm3 (0.16-1.47); MONOCYTES PERCENT AUTO 7 % (4-13); Mean Corpuscular HGB 24.7 pg (26.0-34.0); Mean Corpuscular HGB Conc 30.3 g/dL (31.5-36.5); Mean Corpuscular Volume 81 fL (80-100); Mean Platelet Volume 8.6 fL (9.1-12.4); NEUTROPHILS ABSOLUTE AUTO 5.89 K/mm3 (1.96-9.15); NEUTROPHILS PERCENT AUTO 45 % (41-73); Platelet Count 440 K/mm3 (150-400); RDW Coefficient Variation 14.6 % (11.7-14.2); RDW Standard Deviation 42.9 fL (35.1-46.3); Red Blood Cell Count 3.81 M/mm3 (4.30-5.90); White Blood Cell Count 12.96 K/mm3 (4.00-11.30)
[2019-10-21 08:58] LABS: Alanine Aminotransfer (ALT/SGP 18 U/L (12-78); Albumin/Globulin Ratio 0.4 (0.8-1.8); Alk Phos 138 U/L (50-136); Anion Gap 7 mmol/L (6-16); Aspartate Aminotrans (AST/SGOT 28 U/L (12-37); Bilirubin, Total 0.3 mg/dL (0.1-1.0); Blood Urea Nitrogen 10 mg/dL (8-24); Bun/Creatinine Ratio 9.9 (12.0-20.0); CO2, Blood 28 mmol/L (21-32); Calcium, Blood 8.7 mg/dL (8.5-10.1); Chloride, Blood 105 mmol/L (98-108); Creatinine, Blood 1.01 mg/dL (0.60-1.20); Globulin, Blood 4.5 g/dL (2.2-4.0); Glomerular Filtration Rate >60 (60-); Glucose, Blood 127 mg/dL (70-99); Potassium, Blood 3.2 mmol/L (3.5-5.5); Sodium, Blood 140 mmol/L (136-145); Total Protein, Blood 6.5 g/dL (6.4-8.2)
--- NOTE | 2019-10-21 09:04 | NUR ---
AM MEDS HELD EXCEPT FOR METOPROLOL PER OR REQUEST FOR BRONCHOSCOPY THIS MORNING.
--- NOTE | 2019-10-21 10:51 | NUR ---
History, Chart, Medications and Allergies reviewed before start of procedure. Patient confirms NPO status and agrees with scheduled surgery.
--- NOTE | 2019-10-21 10:52 | NUR ---
10/21/19 1052 Young Shaikh History, Chart, Medications and Allergies reviewed before start of procedure.MONITOR INTACT WITH CONTINUOUS PULSE OXIMETRY AND INTERMITTENT BP.3-LEAD EKG REVIEWED WITH PHYSICIAN PRIOR TO START OF PROCEDURE.O2 VIA N/C INTACT THROUGHOUT SEDATION/PROCEDURE.
--- NOTE | 2019-10-21 14:54 | NUR ---
Per Dr. Tolentino, patient can begin having PO d/t pt being alert.
--- NOTE | 2019-10-21 15:36 | NUR ---
PT OK TO RESUME THINNERS THAT WERE HELD FOR BRONCHOSCOPY PER DR. BOSTON (SEE ORDERS IN EMAR).
--- NOTE | 2019-10-21 16:56 | NUR ---
Shift Summary A/Ox4, pleasant and cooperative. Pt had bronchoscopy procedure today, tolerated well. Denies pain, SOB. 2L O2 via NC with saturations >90%. C/O throat soreness r/t procedure today, pt not asking anything for it. Tolerating PO well. No other concerns, will monitor.
--- NOTE | 2019-10-22 05:15 | NUR ---
74 year old Male with cardiac stent x 2 and aortic anursym continues on tel monitoring in SR BBB. PT on plavix for cardiac stents. PT with 40 pound wt loss and dietary referral med. Poor appetite. HAd bronchoscopy for bilat pneumonia and washings and samples sent from procedure. 0xygen 2 l nc to keep sats greater than 90%Up indep in room PT is weak and pale. Hypertensive on multiple cardiac rx.
[2019-10-22 07:46] LABS: BASOPHILS ABSOLUTE AUTO 0.04 K/mm3 (0.00-0.23); BASOPHILS PERCENT AUTO 1 % (0-2); EOSINOPHILS ABSOLUTE AUTO 0.21 K/mm3 (0.00-0.68); EOSINOPHILS PERCENT AUTO 3 % (0-6); Hematocrit 29.4 % (37.0-53.0); Hemoglobin 8.9 g/dL (13.5-17.5); IMMATURE GRAN ABSOLUTE AUTO 0.06 K/mm3 (0.00-0.10); IMMATURE GRAN PERCENT AUTO 1 % (0-1); LYMPHOCYTES ABSOLUTE AUTO 0.59 K/mm3 (0.84-5.20); LYMPHOCYTES PERCENT AUTO 7 % (21-46); MONOCYTES ABSOLUTE AUTO 0.44 K/mm3 (0.16-1.47); MONOCYTES PERCENT AUTO 5 % (4-13); Mean Corpuscular HGB 24.7 pg (26.0-34.0); Mean Corpuscular HGB Conc 30.3 g/dL (31.5-36.5); Mean Corpuscular Volume 82 fL (80-100); Mean Platelet Volume 8.5 fL (9.1-12.4); NEUTROPHILS ABSOLUTE AUTO 6.76 K/mm3 (1.96-9.15); NEUTROPHILS PERCENT AUTO 84 % (41-73); Platelet Count 393 K/mm3 (150-400); RDW Coefficient Variation 14.5 % (11.7-14.2); RDW Standard Deviation 43.4 fL (35.1-46.3)
--- NOTE | 2019-10-22 07:52 | NUR ---
ASSESMNET: PT SLEEPING AT THIS TIME. RESP E/U. CALL LIGHT IN REACH. NO S/S DISTRESS. WILL ALLOW REST AND DO FULL ASSESSMENT WHEN PT IS AWAKE AND ALERT.
[2019-10-22 08:03] LABS: Alanine Aminotransfer (ALT/SGP 17 U/L (12-78); Albumin, Blood 1.9 g/dL (3.4-5.0); Albumin/Globulin Ratio 0.4 (0.8-1.8); Alk Phos 132 U/L (50-136); Anion Gap 4 mmol/L (6-16); Aspartate Aminotrans (AST/SGOT 25 U/L (12-37); Bilirubin, Total 0.3 mg/dL (0.1-1.0); Blood Urea Nitrogen 12 mg/dL (8-24); Bun/Creatinine Ratio 13.3 (12.0-20.0); CO2, Blood 30 mmol/L (21-32); Chloride, Blood 105 mmol/L (98-108); Globulin, Blood 4.4 g/dL (2.2-4.0); Glomerular Filtration Rate >60 (60-); Glucose, Blood 126 mg/dL (70-99); Potassium, Blood 3.9 mmol/L (3.5-5.5); Sodium, Blood 139 mmol/L (136-145); Total Protein, Blood 6.3 g/dL (6.4-8.2)
--- NOTE | 2019-10-22 09:27 | NUR ---
PULMONOLOGY: DR CHANEY IN TO SEE PATIENT AND DISCUSS RESULTS OF BRONCH YESTERDAY. STATES THAT FROM HIS STANDPOINT THAT PT CAN DC HOME TOMORROW ONCE HOME O2 IS ARRANGED. PT QUESTIONS ANSWERED BY DOCTOR.
--- NOTE | 2019-10-22 12:18 | NUR ---
Patient is sitting in bed and alert. Patient tells me about his procedure went during the prior day and what they discovered. Patient tells me his fears about going home to soon and his thankfulness that Dr. Adame is allowing for one more day in the hospital. Patient talks about , dying and his juan. He talks about he many of the unexplanable events that have happened that have reminded him of the love and goodness of God. I listen empathically, normalize patient's experience, explore issues of juan and belief in regards to fear and worry and provide companionship and prayer. Patient responds well and shows signs reduced fear. I will continue to remain available to patient and family.
[2019-10-22 14:07] LABS: ATYPICAL PANCA <1:20 titer (Neg:<1:20); CYTOPLASMIC (C-ANCA) <1:20 titer (Neg:<1:20); PERINUCLEAR (P-ANCA) <1:20 titer (Neg:<1:20)
--- NOTE | 2019-10-22 18:11 | NUR ---
PT HAS BEEN STABLE THIS SHIFT. PT HAD HYPERTENTION THIS AM. STARTED ON NORVASC AND GREATLY IMPROVED. TELE SR WITH BBB. PT SATS STABLE ON 2L O2. WILL NEED HOME O2 ARRANGED. PT HAS WEAK COUGH. CULTURES PENDING FROM BRONCHOSCOPY YESTERDAY. NO NAUSEA THIS SHIFT. APPETITE IMPROVING. CONT TO HAVE LOOSE STOOLS. VOIDING WELL. SKIN CRACKED ON BUTTOCKS FOLD, CREAM AND MEPILEX PLACED. PT INDEP TO BATHROOM. WORKED WELL WITH THERAPY TO AMBULATE HALLWAY AND SIT IN CHAIR. SCRIPT FOR WALKER ON CHART TO BE SIGNED PRIOR TO DC. PROBABLE DC HOME TOMORROW. PT USES CALL LIGHT APPROPRIATELY.
--- NOTE | 2019-10-22 20:00 | NUR ---
Patient sitting up in bed. denies pain,SOB, N/V/D. Shift assessment completed. bed low and locked. call guerrero within reach.
--- NOTE | 2019-10-23 06:34 | NUR ---
END OF SHIFT: PATIENT WAS UP AND DOWN INTERMITTENTLY THIS SHIFT. HE CALLED APPROPRIATELY. PT DENIES PAIN SOB, THIS SHIFT. PT HAS HAD SOME LOOSE STOOLS AND I DID LET HIM KNOW THAT HE HAS IMMODIUM AVAILABLE IF HIS STOOLS BECOME A PROBLEM. A&D PLUS ORQUIDEA CAP CREAM APPLIED TO MINUTE SKIN ABRASION ON R BUTTOCK. MPLEX REMOVED PER PATIENT REQUEST.
[2019-10-23] MEDS ORDERED: AMLO5 PO (11:31)
[2019-10-23] MEDS ORDERED: Mepron750 MG/5 M PO (11:32)
[2019-10-23] MEDS ORDERED: PRED20 PO (11:32)
--- NOTE | 2019-10-23 15:37 | NUR ---
PT DISCHARGED. PT DISCHARGED AT 1537. NO CHANGES IN ASSESSMENT PRIOR TO DC. PT COMPLETED HOME O2 EVAL & QUALIFIED FOR 3L. [facility] CONTACTED & EQUIPMENT SUPPLIED TO PT. PT & EDUCATED ON DC INSTRUCTIONS, NEW MEDS, AND FOLLOW UP APPOINTMENTS. PT WHEELED OUT BY THIS RN AND DRIVEN HOME BY .
[2019-10-27 13:07] LABS: ANA DIRECT Positive (Negative); ANTI-CENTROMERE B ANTIBODIES <0.2 AI (0.0-0.9); ANTI-DNA (DS) AB QN <1 IU/mL (0-9); ANTI-JO-1 <0.2 AI (0.0-0.9); ANTICHROMATIN ANTIBODIES <0.2 AI (0.0-0.9); ANTIMYELOPEROXIDASE (MPO) ABS <9.0 U/mL (0.0-9.0); ANTIPROTEINASE 3 (PR-3) ABS <3.5 U/mL (0.0-3.5); ANTIRIBOSOMAL P ANTIBODIES <0.2 AI (0.0-0.9); ANTISCLERODERMA-70 ANTIBODIES <0.2 AI (0.0-0.9); ATYPICAL PANCA <1:20 titer (Neg:<1:20); CYTOPLASMIC (C-ANCA) <1:20 titer (Neg:<1:20); PERINUCLEAR (P-ANCA) <1:20 titer (Neg:<1:20); RNP ANTIBODIES <0.2 AI (0.0-0.9); SJOGREN'S ANTI-SS-A 1.2 AI (0.0-0.9); SJOGREN'S ANTI-SS-B <0.2 AI (0.0-0.9); SMITH ANTIBODIES <0.2 AI (0.0-0.9); SMITH/RNP ANTIBODIES <0.2 AI (0.0-0.9)
== END 2019-10-23 15:37 | disposition home health service (06) | DRG 871 ==
LOC: ER 15:15 → MEDS 19:41
PROVIDERS: Internal Medicine; Internal Medicine Critical Care Medicine; Physician Assistant; ADMIT Internal Medicine
PROC: 0BD88ZX Extraction of Left Upper Lobe Bronchus, Via Natural or Artificial Opening Endoscopic, Diagnostic (ICD-10-PCS; principal; 2019-10-21 11:00)
DX: A41.9 Sepsis, unspecified organism (principal); J96.91 Respiratory failure, unspecified with hypoxia; J82 Pulmonary eosinophilia, not elsewhere classified; E87.6 Hypokalemia; I10 Essential (primary) hypertension; E11.9 Type 2 diabetes mellitus without complications; I25.10 Atherosclerotic heart disease of native coronary artery without angina pectoris; E83.42 Hypomagnesemia; Z85.46 Personal history of malignant neoplasm of prostate; Z95.5 Presence of coronary angioplasty implant and graft; I25.2 Old myocardial infarction; Z86.73 Personal history of transient ischemic attack (TIA), and cerebral infarction without residual deficits; E78.00 Pure hypercholesterolemia, unspecified; N40.0 Benign prostatic hyperplasia without lower urinary tract symptoms
CPT/HCPCS: 0099U; 36415; 71046; 71260; 74177; 80048; 80053; 81003; 82607; 82728; 82746; 82947; 83520; 83540; 83550; 83605; 83690; 83735; 84443; 85025; 85027; 85610; 85651; 85730; 86038; 86160; 86225; 86235; 86256; 86682; 87040; 87070; 87086; 87205; 88108; 88312; 92610; 93005; 93010; 93306; 94761; 96365-59; 96366; 96367; 96375; 97110; 97116; 97162; 97530; 99285-25; A9270; A9270-GY; C9113; J0171; J1650; J1885; J2250; J2405; J2543; J2550; J3010; J3370; J3475; J3480; J7030; J7050; J7120; J7512; Q9967

== ENCOUNTER 2019-11-04 10:13 | Inpatient (IN) | payer MEDICARE ==
[~2019-11-04] VITALS: Ht 182.9 cm; Wt 72.2 kg
[~2019-11-04 10:13] MED LIST changes: +AMLO5 PO; +ATOR80 PO; +CLIN300 PO; +EZET10 PO; +EZETIMIBE10 MG PO; +FISH OIL 1,001000 MG PO; +LOSARTAN POTAS100 MG PO; +Lopressor 50 mg50 MG PO; +Mepron750 MG/5 M PO; +Metformin HCl1000 MG PO; +ONDA4 PO; +PRED20 PO; +PROC5 PO; +TADA10TA PO; +VITAMIN B-121000 MCG; +VITAMIN B-121000 MCG PO
[2019-11-04 10:42] LABS: BASOPHILS ABSOLUTE AUTO 0.02 K/mm3 (0.00-0.23); BASOPHILS PERCENT AUTO 0 % (0-2); EOSINOPHILS PERCENT AUTO 5 % (0-6); Hematocrit 32.4 % (37.0-53.0); Hemoglobin 9.9 g/dL (13.5-17.5); IMMATURE GRAN ABSOLUTE AUTO 0.16 K/mm3 (0.00-0.10); IMMATURE GRAN PERCENT AUTO 1 % (0-1); LYMPHOCYTES PERCENT AUTO 3 % (21-46); MONOCYTES ABSOLUTE AUTO 0.78 K/mm3 (0.16-1.47); MONOCYTES PERCENT AUTO 3 % (4-13); Mean Corpuscular HGB 24.3 pg (26.0-34.0); Mean Corpuscular HGB Conc 30.6 g/dL (31.5-36.5); Mean Corpuscular Volume 80 fL (80-100); Mean Platelet Volume 8.8 fL (9.1-12.4); NEUTROPHILS ABSOLUTE AUTO 20.39 K/mm3 (1.96-9.15); NEUTROPHILS PERCENT AUTO 88 % (41-73); Platelet Count 534 K/mm3 (150-400); RDW Coefficient Variation 15.4 % (11.7-14.2); RDW Standard Deviation 44.5 fL (35.1-46.3); Red Blood Cell Count 4.07 M/mm3 (4.30-5.90); White Blood Cell Count 23.15 K/mm3 (4.00-11.30)
[2019-11-04 10:53] LABS: Alanine Aminotransfer (ALT/SGP 34 U/L (12-78); Albumin, Blood 2.3 g/dL (3.4-5.0); Albumin/Globulin Ratio 0.5 (0.8-1.8); Alk Phos 151 U/L (50-136); Anion Gap 11 mmol/L (6-16); Aspartate Aminotrans (AST/SGOT 47 U/L (12-37); Bilirubin, Total 0.6 mg/dL (0.1-1.0); Blood Urea Nitrogen 31 mg/dL (8-24); Bun/Creatinine Ratio 28.7 (12.0-20.0); CO2, Blood 27 mmol/L (21-32); Chloride, Blood 104 mmol/L (98-108); Creatinine, Blood 1.08 mg/dL (0.60-1.20); Globulin, Blood 4.6 g/dL (2.2-4.0); Glomerular Filtration Rate >60 (60-); Glucose, Blood 177 mg/dL (70-99); Potassium, Blood 3.5 mmol/L (3.5-5.5); Sodium, Blood 142 mmol/L (136-145); Total Protein, Blood 6.9 g/dL (6.4-8.2); Troponin I 0.065 ng/mL (0.000-0.040)
[2019-11-04] MEDS ORDERED: AMLODIPINE BESYL5 MG PO (12:48)
[2019-11-04] MEDS ORDERED: ATOVAQUONE750 MG/5 M PO (12:48)
[2019-11-04] MEDS ORDERED: LOSARTAN POTAS100 M1 PO (12:49)
[2019-11-04] MEDS ORDERED: EZETIMIBE10 MG PO (12:53)
[2019-11-04 13:14] LABS: PCO2 Arterial 39.4 mmHg (35-45); PO2 Arterial 68.7 mmHg (80-100); pH Blood Arterial 7.47 (7.35-7.45)
[2019-11-04 14:35] LABS: International Normalized Ratio 1.17; Prothrombin Time Results 12.4 Sec (9.7-11.5)
--- NOTE | 2019-11-04 16:00 | NUR ---
Patient arrived via gurney on NC 6L O2 and sats 90%. He was shortly placed on BIPAP / at 50% and sats low 90%'s with resp rate in the 30-40. Dr Hill ordered Precedex and Clinimix and lasix and administered per NOV. Patient in ST 100-120 and systolic 80-110. Placed temp Barth crystal clear urine and prior he used urinal with loulou colored urine 300ml. LE 2+ edema and he is very weak. He is oriented and very anxious with BIPAP prior to Precedex. at bedside.
--- NOTE | 2019-11-04 17:10 | NUR ---
Spiritual Care inital note: Mr. Cuevas is pleasant, but anxious due to SOB. He admits to feeling fearful, and tells me he has a strong juan in God, but is not ready to "go." He has been 4 years and reports deep love for her. He appeared to calm with conversation and prayer. He believes he will get better. We had an easy rapport and I will remain available.
[2019-11-04 17:30] LABS: Adenovirus Not Detected (NOT DETECT); Bordetella pertussis Not Detected (NOT DETECT); Chlamydophila pneumoniae Not Detected (NOT DETECT); Coronavirus 229E Not Detected (NOT DETECT); Coronavirus HKU1 Not Detected (NOT DETECT); Coronavirus NL63 Not Detected (NOT DETECT); Coronavirus OC43 Not Detected (NOT DETECT); Human Metapneumovirus Not Detected (NOT DETECT); Human Rhinovirus/Enterovirus Not Detected (NOT DETECT); Influenza A Not Detected (NOT DETECT); Influenza A/2009-H1 Not Detected (NOT DETECT); Influenza A/H1 Not Detected (NOT DETECT); Influenza A/H3 Not Detected (NOT DETECT); Influenza B Not Detected (NOT DETECT); Mycoplasma pneumoniae Not Detected (NOT DETECT); Parainfluenza Virus 1 Not Detected (NOT DETECT); Parainfluenza Virus 2 Not Detected (NOT DETECT); Parainfluenza Virus 3 Not Detected (NOT DETECT); Parainfluenza Virus 4 Not Detected (NOT DETECT); Respiratory Syncytial Virus Not Detected (NOT DETECT)
--- NOTE | 2019-11-04 19:00 | NUR ---
Placed PICC in LORENA and he has 20ga IV in RAC infusing Precedex increased from 0.3 to 0.7, and clinimix at 50ml/hr. He is more relaxed and Bronch and intubation placed on hold. Gave report to Tejal CONCEPCION and she is sending urine sample and placed oreder for Levophed that from verbal order from [facility].. Patient resting quietly.
[2019-11-04 19:41] LABS: Source, Urine Catheter
[2019-11-04 20:00] LABS: Bilirubin, Urine Neg (Neg); Blood, Urine 3+ (Neg); Glucose Qualitative, Urine Neg (Neg); Ketones, Urine Neg (Neg); Leukocyte Esterase, Urine Neg (Neg); Nitrite, Urine Neg (Neg); Protein, Urine Neg (Neg); Specific Gravity, Urine 1.005 (1.003-1.022); Urobilinogen, Urine NORM (Normal)
[2019-11-04 20:08] LABS: Appearance, Urine Clear (Clear); Bacteria Not Seen /hpf; Color, Urine Pale Yellow (P-Yellow); Mucus Light (0-Heavy); Red Blood Cells, Urine 25-50 /hpf (0-2); Squamous Epithelial Cells Rare /hpf (Few); White Blood Cells, Urine Not Seen /hpf (0-5)
--- NOTE | 2019-11-04 20:45 | NUR ---
ASSUMED PT CARE FROM [facility] BEDSIDE REPORT GIVEN. PT ON PRECEDEX AT 0.7MCG/KG/HR AT THIS TIME AND BIPAP 16/6 WITH FIO2 50%; RR 20'S. PT BECOMES VERY SOB WITH MINIMAL EXERTION. PT IS PLEASANT AND COOPERATIVE. ALERT AND ORIENTED AND ABLE TO MAKE HIS NEEDS KNOWN. CLINIMIX ALSO INFUSING AT 50MLS/HR. PICC LINE JUST RECENTLY PLACED TO RIGHT UPPER ARM; IV FLUIDS CHANGED OVER TO RUN VIA PICC. PT HAS TEMP PEDRAZA PATENT AND DRAINING TO GRAVITY; CLEAR, YELLOW URINE. PT IS VERY EDEMATOUS TO BLE'S. DR. LAU CALLED TO OBTAIN ORDERS FOR LEVOPHED D/T PT'S BLOOD PRESSURES BEING ON THE SOFTER SIDE IN CASE THEY WERE NEEDED TONIGHT. DR. LAU ALSO DISCONTINUED MAINTENANCE FLUIDS ORDERED TO INFUSE AT 100MLS/HR. CALL LIGHT WITHIN REACH; PT IS ABLE TO MAKE HIS NEEDS KNOWN.
[2019-11-05 03:39] LABS: BASOPHILS ABSOLUTE AUTO 0.01 K/mm3 (0.00-0.23); BASOPHILS PERCENT AUTO 0 % (0-2); EOSINOPHILS ABSOLUTE AUTO 0.06 K/mm3 (0.00-0.68); EOSINOPHILS PERCENT AUTO 1 % (0-6); Hematocrit 25.5 % (37.0-53.0); Hemoglobin 7.9 g/dL (13.5-17.5); IMMATURE GRAN ABSOLUTE AUTO 0.07 K/mm3 (0.00-0.10); IMMATURE GRAN PERCENT AUTO 1 % (0-1); LYMPHOCYTES ABSOLUTE AUTO 0.16 K/mm3 (0.84-5.20); LYMPHOCYTES PERCENT AUTO 1 % (21-46); MONOCYTES ABSOLUTE AUTO 0.14 K/mm3 (0.16-1.47); MONOCYTES PERCENT AUTO 1 % (4-13); Mean Corpuscular HGB 24.6 pg (26.0-34.0); Mean Corpuscular Volume 79 fL (80-100); Mean Platelet Volume 8.8 fL (9.1-12.4); NEUTROPHILS ABSOLUTE AUTO 12.24 K/mm3 (1.96-9.15); NEUTROPHILS PERCENT AUTO 96 % (41-73); Platelet Count 343 K/mm3 (150-400); RDW Coefficient Variation 15.4 % (11.7-14.2); Red Blood Cell Count 3.21 M/mm3 (4.30-5.90); White Blood Cell Count 12.68 K/mm3 (4.00-11.30)
[2019-11-05 03:58] LABS: Anion Gap 8 mmol/L (6-16); Blood Urea Nitrogen 38 mg/dL (8-24); Bun/Creatinine Ratio 33.3 (12.0-20.0); CO2, Blood 30 mmol/L (21-32); Calcium, Blood 8.1 mg/dL (8.5-10.1); Chloride, Blood 107 mmol/L (98-108); Creatinine, Blood 1.14 mg/dL (0.60-1.20); Glomerular Filtration Rate >60 (60-); Glucose, Blood 227 mg/dL (70-99); Potassium, Blood 3.4 mmol/L (3.5-5.5); Sodium, Blood 145 mmol/L (136-145)
[2019-11-05 04:38] LABS: PCO2 Arterial 37.9 mmHg (35-45); PO2 Arterial 75.2 mmHg (80-100); pH Blood Arterial 7.49 (7.35-7.45)
--- NOTE | 2019-11-05 05:10 | NUR ---
END OF SHIFT SUMMARY PT REMAINED ON BIPAP T/O NIGHT WITH NO COMPLICATIONS. SETTINGS REMAINED UNCHANGED AT 12/6; FIO2 30%; RR 20-30'S. PRECEDEX TITRATED DOWN TO 0.2MCG/KG/HR DUE TO PT'S BLOOD PRESSURE BEING ON THE SOFTER SIDE WHILE SLEEPING; SEE FLOWSHEET. LEVOPHED WAS ORDERED, BUT NEVER NEEDED TO START. CLINIMIX REMAINS INFUSING AT 50MLS/HR. PEDRAZA CATH REMAINS PATENT AND DRAINING CLEAR, YELLOW URINE TO GRAVITY. TMAX 99.5. PT REMAINS ALERT AND ORIENTED; HIGH ASPIRATION RISK; THEREFORE, FREQUENT MOUTH SWABS AND ORAL CARE PERFORMED. PT IS VERY PLEASANT AND COOPERATIVE WITH CARES. ENJOYS BEING INFORMED REGARDING MEDICATIONS AND TREATMENTS. CALLED AND ALSO STATED HER CONCERN REGARDING BRONCHOSCOPE TODAY WITH INTUBATION. INFORMED HER THAT I WOULD ENSURE HER CONCERNS WERE PASSED ALONG TO DR. LAU SO THE PROCEDURE CAN BE EXPLAINED TO HER IN GREATER DETAIL IN REGARDS TO THE NEED TO INTUBATE FOR THE PROCEDURE; THIS APPEARS TO BE HER GREATEST CONCERN. PT HAS DENIED PAIN T/O SHIFT AND APPEARS COMFORTABLE AT THIS TIME. CALL LIGHT IS WITHIN REACH AND PT IS ABLE TO MAKE HIS NEEDS KNOWN.
--- NOTE | 2019-11-05 08:00 | NUR ---
Received report from Tejal CONCEPCION. Patient on left side supine and is resting while on BIPAP 12/6 and 30% with sats mid 90%'s. He awakens easily and is able to mostly comunicate his needs as it is haed to understand through mask. He has PICC line to LORENA dressing intact and site WNL's and is infusing Precedex 0.2 mcg/kg/hr and Clinimix at 50 ml/hr and NS TKO.
--- NOTE | 2019-11-05 09:23 | NUR ---
Dr Adame came and saw patient at 0900 and placed on 6L O2 via NC and patient tolerating well with sats upper 90%. He was able to take am meds with apple sauce and sips of water without difficulty. I had him tuck his chin with swallowing and he was able to clear throat when needed. No other current changes.
[2019-11-05 11:39] LABS: Vancomycin, Trough 16.7 ug/mL (5.0-10.0)
--- NOTE | 2019-11-05 12:28 | NUR ---
Patient was here and Dr Guerrero discussed current plan. He remains on 6L O2 Via NC and sats mid 90%'s. No significant changes.
--- NOTE | 2019-11-05 14:35 | NUR ---
Patient currently on 5L O2 via NC and was reduced by RT shortly ago and sats low 90%'s and tolerating well. His resp rate has been as high as 37, but hangs out around 25 while awake. He has swabs and mouth moisturizer at bedside and has been dipping swabs in ice water. He remains oriented but speech still difficult to understand mostly.He remains to have low grade fever per temp elias 99.3.
--- NOTE | 2019-11-05 17:29 | NUR ---
Patients went home and Dr Guerrero wanted him placed back on BIPAP. I allowed him to have some lemonaide, increased Precedex to 0.7 and placed BIPAP 12/6 30% and sats 94%. VSS See EMR
--- NOTE | 2019-11-05 19:31 | NUR ---
Per admit trigger, I attempted to meet with Al to offer information regarding Advanced Care planning. He was sleeping peacefully. RN asked me not to awaken. Advanced Directive packet left on bedside table. I will remain available to pt and family.
--- NOTE | 2019-11-05 22:21 | NUR ---
ASSUMED PT CARE FROM [facility] BEDSIDE REPORT GIVEN. PRECEDEX GTT AT 0.7MCG/KG/HR. CLINIMIX REMAINS AT 50MLS/HR. BIPAP AT 12/6; FIO2 30%. PT SLEEPING AND TOLERATING BIPAP AT TIME OF SHIFT CHANGE. HOWEVER, UPON MEDICATION TIME PT REQUESTED A BREAK FROM BIPAP AND WAS PLACED ON 5L VIA NC; BIOX MID TO HIGH 90'S WITH RESP RATE 20-30'S. PT STILL REMAINS SOB WITH MINIMAL EXERTION; SPEAKS IN SHORT SENTENCES. ATTEMPTED TO GIVE MEDICATIONS WHOLE WITH APPLESAUCE; HOWEVER, PT HAD DIFFICULTY WITH SWALLOWING. THEREFORE, CRUSHED MEDS IN APPLESAUCE AND PT STILL HAD DIFFICULTY WITH SWALLOWING. UNABLE TO GIVE SENNA AND PART OF CRUSHED LIPITOR. WILL ADVISE DAY SHIFT TO ATTEMPT IN PUDDING. PT FELT DISCOURAGED HE WAS DOING BETTER ON DAY SHIFT WITH SWALLOWNIG WITHOUT DIFFICULTIES. WILL CONTINUE MOUTH SWABS AND ORAL CARE FREQUENTLY. PT REQUESTED TO REMAIN OFF BIPAP FOR A WHILE LONGER. WILL CONTINUE TO ASSESS RESPIRATORY STATUS ON AN ONGOING BASIS TO DETERMINE THE NEED FOR BIPAP USE. OF NOW PT IS BREATHING WITH A RATE 15-20 AND BIOX IS 98% ON 5L NC. CALL LIGHT WITHIN REACH. PT IS ABLE TO MAKE HIS NEEDS KNOWN.
[2019-11-06 04:36] LABS: BASOPHILS ABSOLUTE AUTO 0.02 K/mm3 (0.00-0.23); BASOPHILS PERCENT AUTO 0 % (0-2); EOSINOPHILS PERCENT AUTO 0 % (0-6); Hematocrit 24.7 % (37.0-53.0); Hemoglobin 7.5 g/dL (13.5-17.5); IMMATURE GRAN ABSOLUTE AUTO 0.11 K/mm3 (0.00-0.10); IMMATURE GRAN PERCENT AUTO 1 % (0-1); LYMPHOCYTES PERCENT AUTO 1 % (21-46); MONOCYTES ABSOLUTE AUTO 0.31 K/mm3 (0.16-1.47); MONOCYTES PERCENT AUTO 2 % (4-13); Mean Corpuscular HGB Conc 30.4 g/dL (31.5-36.5); Mean Corpuscular Volume 79 fL (80-100); Mean Platelet Volume 9.1 fL (9.1-12.4); NEUTROPHILS ABSOLUTE AUTO 15.36 K/mm3 (1.96-9.15); NEUTROPHILS PERCENT AUTO 96 % (41-73); Platelet Count 308 K/mm3 (150-400); RDW Coefficient Variation 15.6 % (11.7-14.2); RDW Standard Deviation 44.7 fL (35.1-46.3); Red Blood Cell Count 3.13 M/mm3 (4.30-5.90)
[2019-11-06 04:51] LABS: Bun/Creatinine Ratio 36.2 (12.0-20.0); Calcium, Blood 8.2 mg/dL (8.5-10.1); Creatinine, Blood 1.3 mg/dL (0.60-1.20); Magnesium, Blood 2.2 mg/dL (1.6-2.4); Potassium, Blood 2.8 mmol/L (3.5-5.5)
--- NOTE | 2019-11-06 06:41 | NUR ---
END OF SHIFT SUMMARY PT SLEPT MOST OF SHIFT WITH BIPAP ON 08/15; FIO2 35%. OCCASIONAL BREAKS WITH OXYGEN AT 5L VIA NC. PT HAS BEEN VERY PLEASANT AND COOPERATIVE WITH CARES. VERY PARTICULAR ABOUT MEDICATIONS AND POSITION CHANGES. ASKS REPEATED QUESTIONS ABOUT MEDICATION REGIMEN EVEN WITH THOROUGH EDUCATION. PT CONTINUES TO HAVE DIFFICULTY SWALLOWING THIN LIQUIDS. THEREFORE, CONTINUED ORAL SWABS T/O SHIFT. TRIED PUDDING THIS MORNING WITH MINIMAL THROAT CLEARS AND COUGHING; PT TOLERATED MUCH BETTER THAN HE DID WITH APPLESAUCE AND WATER. WILL TRY THICKENED WATER NEXT TO OPTIMAL SWALLOWING. PT APPEARED WORRIED HE WOULD BE GETTING DISCHARGE SOON. EXPLAINED THAT DISCHARGE WASN'T OF ANY CONCERN RIGHT NOW AND THAT HE STILL HAD A ROAD TO RECOVERY BEFORE DISCHARGING HOME WAS DISCUSSED. PT APPEARED UNDERSTANDING, BUT STILL MENTIONED IT A COUPLE TIMES FOR REASSURANCE. VITAL SIGNS REMAINED STABLE T/O SHIFT; SEE FLOWSHEET. WILL CONTINUE TO MONITOR UNTIL REPORT IS HANDED OF TO ONCOMING RN.
[2019-11-06 08:57] LABS: IMMATURE RETIC FRACTION 23.7 % (2.3-16.0); RETIC HGB EQUIVALENT 20.7 pg (28.20-36.60); RETICULOCYTE ABSOLUTE 0.0663 M/mm3 (0.0200-0.1100); RETICULOCYTE COUNT PERCENT 2.04 % (0.50-2.50)
[2019-11-06 09:13] LABS: Percent Saturation 8.6 % (20.0-50.0)
--- NOTE | 2019-11-06 12:11 | NUR ---
REASSESSMENT: PT HAS REMAINED IN BED THROUGHOUT THE MORNING, REFUSING TO GET OUT OF BED TO THE CHAIR DESPITE ENCOURAGEMENT FROM NURSING STAFF AND DR. LAU. PT HAS TO BE ENCOURAGED TO DO ANY TURNING OR ADLS ON HIS OWN, DESPITE BEING CAPABLE OF DOING THEM. HE DOES GET DYSPENIC WITH ACITIVYT, BUT RECOVERS QUICKLY AND IS ABLE TO TOLERATE THE ACTIVITY WITH BREAKS. LUNGS ARE CLEAR BUT DIM IN THE BASES. SR, BP STABLE. PT HAS A VERY POOR APPETITE AND DR. LAU WOULD LIKE PT TO HAVE A DOBHOFF. PT IS REFUSING AT THIS TIME. ORDERED SOFT, EASY TO EAT FOODDS FOR HIM FOR LUNCH AND EDUCATED PT ON THE NEED TO EAT TO MAINTAIN HIS STRENGTH AND TO PREVENT HIM FROM GETTING A FEEDING TUBE. PT HAD 2 MED DARK BMS, INCONTINENT. DRESSING ON HIS COCCYX REPLACED BOTH TIMES. SM AMT OF SS DRAINAGE FROM OPEN AREA TO THE R OF HIS COCCYX. PEDRAZA DRAINING CL YELLOW URINE. PT'S CAME IN BRIEFLY THIS MORNING AND WAS UPDATED. SHE WAS ASKING TO SPEAK TO THE DOCTOR BUT LEFT BEFORE DR. LAU ROUNDED DESPITE BEING TOLD THAT SHE WOULD BE IN SHORTLY.
[2019-11-06 12:13] LABS: Vancomycin, Trough 24.6 ug/mL (5.0-10.0)
--- NOTE | 2019-11-06 16:40 | NUR ---
SHIFT SUMMARY PT SPENT THE DAY IN BED, REFUSED TO GET UP TO A CHAIR. IN THE AFTERNOON HE GOT INCREASINGLY ANXIOUS, RR SLOWLY INCREASED AND THEN HIS HR STARTED GETTING UP TO THE 150S. HR APPEARED TO BE SR WITH FREQUENT PAC AND PVC. INFORMED DR. LAU AND SHE ADVISED TO PUT PT BACK ON BIPAP THIS HAPPENED YESTERDAY AFTERNOON AND RESOLVED WITH BIPAP. PT WAS AGREEABLE TO BIPAP. CURRENTLY TOLERATING IT WITHOUT ANY PRECEDEX. PT'S IS AT THE BEDSIDE. SHE IS EXPRESSING A LOT OF FRUSTRATION ABOUT NOT HAVING A SPECIFIC DIAGNOSIS. LOTS OF DISCUSSION AND EDUCATION WITH HER ABOUT WHAT IS GOING ON WITH PT AND EXPECTATIONS FOR TREATMENT. PT'S LUNGS REMAIN CL, JUST DIM IN THE BASES. BP STABLE, AFEBRILE, SEE VITALS. PT MADE MORE EFFORT TO EAT AT LUNCH BUT STILL ATE ONLY 10% OF HIS MEAL. DISCUSSED DOBHOFF WITH HIM AGAIN AND HE WOULD LIKE TO WAIT UNTIL TOMORROW. NO OTHER REQUESTS FROM PT AT THIS TIME.CONTINUING TO MONITOR.
--- NOTE | 2019-11-06 21:10 | NUR ---
ASSUMED PT CARE FROM [facility] PT LYING IN BED WITH BIPAP IN PLACE; 08/15; FIO2 35%; RESP RATE 30-40'S. PT VERY ANXIOUS AND NOT TOLERATING BIPAP VERY WELL. PRECEDEX OFF AT THIS TIME AND WAS RESTARTED AT 0.5MCG/KG/HR. PT REPEATEDLY ASKED IF HE COULD TAKE OFF HIS BIPAP IN WHICH HE WAS EDUCATED ON THE IMPORTANCE OF WEARING IT AND THAT HE WOULD GET A SHORT BREAK FOR MEDICATION ADMINISTRATION AROUND 1999. PT AGREEABLE. CLINIMIX INFUSING AT 50MLS/HR. PT REFUSED DOBHOFF ON DAY SHIFT; THEREFORE, ENCOURAGING INTAKE OF FOOD AND GLUCERNA. HOWEVER, PT IS STILL HAVING DIFFICULTIES WITH SWALLOWING; THEREFORE, THICKENED LIQUIDS IS ADVISED. PT SWALLOWS MEDICATIONS CRUSHED IN PUDDING OKAY. CALL LIGHT WITHIN REACH AT THIS TIME AND PT IS ABLE TO MAKE HIS NEEDS KNOWN.
[2019-11-07 03:33] LABS: BASOPHILS ABSOLUTE AUTO 0.02 K/mm3 (0.00-0.23); BASOPHILS PERCENT AUTO 0 % (0-2); EOSINOPHILS PERCENT AUTO 0 % (0-6); Hematocrit 23.7 % (37.0-53.0); Hemoglobin 7.2 g/dL (13.5-17.5); IMMATURE GRAN ABSOLUTE AUTO 0.13 K/mm3 (0.00-0.10); IMMATURE GRAN PERCENT AUTO 1 % (0-1); LYMPHOCYTES ABSOLUTE AUTO 0.25 K/mm3 (0.84-5.20); LYMPHOCYTES PERCENT AUTO 1 % (21-46); MONOCYTES ABSOLUTE AUTO 0.34 K/mm3 (0.16-1.47); MONOCYTES PERCENT AUTO 2 % (4-13); Mean Corpuscular HGB 24.2 pg (26.0-34.0); Mean Corpuscular HGB Conc 30.4 g/dL (31.5-36.5); Mean Corpuscular Volume 80 fL (80-100); Mean Platelet Volume 8.8 fL (9.1-12.4); NEUTROPHILS ABSOLUTE AUTO 17.38 K/mm3 (1.96-9.15); NEUTROPHILS PERCENT AUTO 96 % (41-73); Platelet Count 263 K/mm3 (150-400); RDW Coefficient Variation 15.8 % (11.7-14.2); RDW Standard Deviation 45.8 fL (35.1-46.3); Red Blood Cell Count 2.97 M/mm3 (4.30-5.90); White Blood Cell Count 18.12 K/mm3 (4.00-11.30)
[2019-11-07 03:48] LABS: Bun/Creatinine Ratio 47.2 (12.0-20.0); Calcium, Blood 8.2 mg/dL (8.5-10.1); Creatinine, Blood 1.25 mg/dL (0.60-1.20); Potassium, Blood 3.9 mmol/L (3.5-5.5)
--- NOTE | 2019-11-07 06:20 | NUR ---
END OF SHIFT SUMMARY NO SIGNIFICANT CHANGES SINCE LAST ENTRY. PT TOLERATED BIPAP (/; FIO2 30%) T/O NIGHT WITH PRECEDEX AT 0.7MCG/KG/HR. PT TOLERATED SHORT BREAKS WITH OXYGEN AT 5L VIA NC. LUNG SOUNDS REMAIN DIMINISHED T/O. NON-PRODUCTIVE, DRY COUGH. CONTINUES TO HAVE DIFFICULTY WITH SWALLOWING. CLINIMIX INFUSING AT 50MLS/HR. CALL LIGHT WITHIN REACH; PT ABLE TO MAKE NEEDS KNOWN.
--- NOTE | 2019-11-07 07:40 | NUR ---
BEDSIDE REPORT TAKEN AT 0650. PT PLACED ON 6L N/C FOR BREAK OFF BIPAP. PT PALE, LETHARGIC, WITH DYSPNEA, ONLY ABLE TO WHISPER A FEW WORDS AT A TIME, RESP MODERATELY LABORED. CRACKLES TO BASES BILAT. SATS 95-99% AFTER PT SAT IN HIGH FOWLERSS. PRECEDEX GTT PLACED ON HOLD WHILE OFF BIPAP. CLINIMIX INFUSING AT 50CC/HR. O2 TAKEN DOWN TO 5L BY RT AT 0740.
--- NOTE | 2019-11-07 10:25 | NUR ---
AT ABOUT ONE HOUR ON BREAK FROM BIPAP WITH O2 AT 5L, PT BECAME PROGRESSIVELY MORE DYSPNEIC AND SATS DECREASED INTO MID 80'S. PT ALSO HAD INCREASED ECTOPY WITH TACHYCARDIA 180'S AND MILD DROP IN BP. PT ABLE TO ONLY TAKE PO MEDS; UNABLE TO EAT D/T INCREASED RESP EFFORT. BIPAP IMMEDIATELY PLACED BACK ON PT WITH PRECEDEX RESUMED AT 0.7MCG FOR SIGNIFICANT ANXIETY WHILE WEARING BIPAP. PT REMAINS COOL, PALE, AND SLIGHTLY DIAPHORETIC. PT'S AT BEDSIDE AT 0930; UPDATE GIVEN. DR BUENO GIVEN UPDATE WELL AND WILL SEE PT SHORTLY.
--- NOTE | 2019-11-07 11:19 | NUR ---
DR BUENO AT BEDSIDE TO EVALUATE AND ANSWER QUESTIONS FOR EXTENDED AMT OF TIME. PT, PT'S , AND PT'S 2 FRIEND'S AT BEDSIDE FOR CONVERSATION. PT AND FAMILY ARE IN DECISION MAKING PROCESS REGARDING ESCALATION OF CARE; IE INTUBATION IF PT BECOMES WORSE VS PALIATIVE/COMFORT CARE. PT VITALS STABLE ON BIPAP AT THIS TIME. CLINIMIX AND PRECEDEX INFUSING WELL ZOSYN.
--- NOTE | 2019-11-07 13:05 | NUR ---
1200 ASSESSENT W/O CHANGE EXCEPT PT DID NOT TOLERATE BREAK FROM BIPAP FOR ORAL CARE. SATS DROPPED WITHIN MIN TO MID 80'S. PT RECOVERED QUICKLY ONCE PLACED ON BIPAP. PRECEDEX GTT DECREASED TO 0.5MCG.
--- NOTE | 2019-11-07 15:23 | NUR ---
Patient is lying in bed and asleep. Patient's family are bedside. Patient's spouse, Lorraine, tells me what patient's quality of life has been since his last admission to the hospital. They ask me to pray for patient which I gladly do. Patient voices gratitude. Patient and family tell me that they do not want patient to be intubated, at least not yet. They, including patient, state that this is not the quality of life they want. We talk about risk vs. benefit and about patient's wishes. I will continue to remain available to patient and family.
--- NOTE | 2019-11-07 16:00 | NUR ---
PT AWAKE FROM NAP, BIPAP REMOVED BRIEFLY FOR ORAL CARE AND QUICK SIP OF WATER. PT COUGHED A BIT ON THE WATER. PRECEDEX PLACED ON STANDBY AND BIPAP REPLACED. WILL CHECK SWALLOWING IN AN HOUR FOR IMPROVEMENT OFF SEDATION PT REQUEST WATER TO DRINK AND IS UNABLE TO SWALLOW SAFELY AT THIS TIME. FAMILY AT BEDSIDE. FAT EMULSION GTT STARTED.
[2019-11-07 17:26] LABS: Vancomycin, Trough 17.9 ug/mL (5.0-10.0)
--- NOTE | 2019-11-07 18:36 | NUR ---
PT GIVEN BED BATH WHILE ON BIPAP; TOLERATED WELL. PT PLACED ON BREAK WITH 6L VIA N/C AT 1800. PT DID MUCH BETTER THAN COMPARED TO EARLIER. PT MORE AWAKE, VOICE STRONGER, ABLE TO SWALLOW THICKENED LIQUIDS ONLY. DR BUENO NOTIFIED, SPEECH EVAL ORDERED FOR TOMORROW. PT LASTED ABOUT 30MIN ON BREAK BEFORE REQUIRING THE BIPAP TO BE REPLACED. VANCO INFUSING. PRECEDEX TURNED BACK ON AT 0.5MCG PER PT REQUEST ("TURN ON THE MEDICINE THAT HELPS ME SLEEP ON THE BIPAP") FOR SLEEP TONIGHT.
--- NOTE | 2019-11-07 21:00 | NUR ---
ASSUMPTION OF CARE ASSUMED CARE OF PT @ 1915, PT AWAKE IN BED, ORIENTED TO SELF, FAMILY, EVENT, AND FOLLOWING DIRECTIONS. PT ON BIPAP 12/6 FIO2 35% TO MAINTAIN O2 SATURATIONS >90%. PT TOLERATED SHORT BREAK ON NC (SEE FLOWSHEET), PLACED BACK ON BIPAP, RT CHANGED TO HI-FLOW NC, IMPROVED TOLERANCE OFF BIPAP NOTED. MONITOR SHOWS SINUS RHYTHM, HR 90'S-130'S, PVC'S AND PAC'S NOTED. PICC LINE TO LORE[place] IN TACT, INF PRECEDEX, CLINIMIX, FAT EMULSION (SEE FLOWSHEET). REPORT FROM DAYSHIFT OF LEAKING AT [facility] CURRENTLY IN TACT, NO LEAKING NOTICED AT THIS TIME. PT REPORTS ISSUES WITH DIARRHEA. PT SWALLOWING CRUSHED PILLS IN PUDDING. PT REPORTS 1/100 BACK AND BOTTOM PAIN, ATTEMPTED REPOSITIONING ON R AND L SIDES WITH NO RELEIF, PT REFERS SUPINE POSITION WITH LIMBS ELEVATED. DISCUSSED CODE STATS WITH PT, PT AND FAMILY AGREE TO INTUBATION IF NEED, HOWEVER PT DOES NOT WANT CHEST COMPRESSIONS.
--- NOTE | 2019-11-07 22:32 | NUR ---
PT RESTING AT THIS TIME, CONTINUES TO TOLERATE BREAK FROM BIPAP ON HIFLOW NC. PLAN TO APPLY BIPAP FOR SLEEPING WITH 2300 BREATHING TREATMENT.
--- NOTE | 2019-11-07 23:52 | NUR ---
PT PLACED ON BIPAP FOR SLEEPING, PRECEDEX INCREASED TO 0.7 FOR TOLERANCE (SEE FLOWSHEET). PT HAS DIFFICULTY GETTING COMFORTABLE, REPOSITIONED FOR MAXIMAL COMFORT. REPETATIVE REPORTS OF DIARRHEA, PT CHECKED WITH NO BM PRESENT AT THIS TIME, PT REASSURED THAT IT IS LIKELY JUST FLATUS. USING CALL LIGHT APPROPRIATELY, CALL LIGHT WITHIN REACH.
--- NOTE | 2019-11-08 01:46 | NUR ---
WALKED IN TO PTS ROOM D/T BIPAP ALARMING, PT HAD REMOVED BIPAP, BEGAN YELLING FOR HELP, STS HE IS GOING TO VOMIT. HI FLOW APPLIED, PT PLACED HIGH FOWLERS AND PROVIDED WITH EMESIS BAG. ZOFRAN ADMINISTERED. NO EMESIS AT THIS TIME.
[2019-11-08 05:07] LABS: Anion Gap 12 mmol/L (6-16); Blood Urea Nitrogen 70 mg/dL (8-24); Bun/Creatinine Ratio 56.9 (12.0-20.0); CO2, Blood 25 mmol/L (21-32); Calcium, Blood 8.1 mg/dL (8.5-10.1); Chloride, Blood 108 mmol/L (98-108); Creatinine, Blood 1.23 mg/dL (0.60-1.20); Glomerular Filtration Rate >60 (60-); Glucose, Blood 444 mg/dL (70-99); Magnesium, Blood 2.5 mg/dL (1.6-2.4); Phosphorus, Blood 6.9 mg/dL (2.5-4.9); Potassium, Blood 5.4 mmol/L (3.5-5.5); Sodium, Blood 145 mmol/L (136-145)
--- NOTE | 2019-11-08 08:34 | NUR ---
SPEECH THERAPY SPEECH THERAPY TO BEDSIDE FOR EVALUATION
--- NOTE | 2019-11-08 11:30 | NUR ---
CARE ASSUMED REPORT RECEIVED, CARE ASSUMED AT 0700. PT SLEEPY, SOFT SPOKEN, BUT ORIENTED. RR ELEVATED. PT AGREEABLE TO WEAR BIPAP. BIPAP PLACED ON. PRECEDEX OFF FOR SPEECH EVALUATION. PER GENERATOR OPERATOR STRAIGHT BEVEL GEAR, PT TO BE NPO EXCEPT FOR ESSENTIAL MEDICATIONS. MEDICATIONS GIVEN CRUSHED IN PUDDING PER RECOMMMENDATIONS AND PT TOLERATED OK. GIVEN LATE PT HAS STRUGGLED TO RECOVER AFTER SPEECH EVALUATION. PT COUGHING INTERMITTENTLY, SOB AND REPORTS BEING EXHAUSTED. PT EVENTUALLY RECOVERED WITH BIPAP. MEDS GIVEN AND PT TOLERATED OK, HR GOES INTO 130'S-140'S EVEN WITH SMALL BITES OF FOOD. PT HAD LARGE, LIQUID BOWEL MOVEMENT. RECTAL TUBE PLACED. PT HAS HAD NAUSEA THAT RESULTED IN HIM TAKING OFF BIPAP. NO EMESIS NOTED, BUT ZOFRAN GIVEN. OTHER THAN ELEVATED HR, VITALS HAVE BEEN STABLE. PT HAS BEEN EXPRESSING NEEDS CLEARLY, REQUESTING VARIOUS ADL'S BOTH WHEN STAFF ARE IN ROOM AND VIA CALL LIGHT. PT HAS HAD FAMILY IN AND OUT THROUGHOUT THE MORNING.
--- NOTE | 2019-11-08 13:34 | NUR ---
will remain available to help family with decisions and supportive care.
--- NOTE | 2019-11-08 13:38 | NUR ---
DR. MYLES BUENO TO BEDSIDE FOR ASSESSMENT. CONTINUE WITH CURRENT PLAN OF CARE, ORDER TO SEND STOOL TO LAB FOR GUAIAC.
--- NOTE | 2019-11-08 16:50 | NUR ---
DR. LARA WAS NOTIFIED REGARDING PT'S NAUSEA DESPITE RECEIVING A DOSE OF ZOFRAN @ 1456. PT IS COMING IN AND OUT OF SVT. ORDERS TO GIVE ANOTHER DOSE OF ZOFRAN. NO ORDERS FOR SVT.
--- NOTE | 2019-11-08 18:00 | NUR ---
SVT PT GOING IN AND OUT OF SVT, HR 180'S FOR 30 SECOND SPANS. PT DENIES CHEST PAIN, INCREASED SOB OR DIZZINESS. BP STABLE. SPOKE WITH DR. BUENO. NEW ORDER FOR LABS. LABS SENT. PT PLACED BACK ON BIPAP. CALL TO PHARMACY TO RESTART PRECEDEX PT CONTINUES TO BE ANXIOUS, RESTLESS TO TOLERATE BIPAP.
[2019-11-08 18:32] LABS: Magnesium, Blood 2.6 mg/dL (1.6-2.4)
[2019-11-08 18:44] LABS: Bun/Creatinine Ratio 62.2 (12.0-20.0); Creatinine, Blood 1.43 mg/dL (0.60-1.20); Potassium, Blood 4.3 mmol/L (3.5-5.5)
--- NOTE | 2019-11-08 19:13 | NUR ---
REPORT TO [facility] TO ASSUME CARE
--- NOTE | 2019-11-08 19:24 | NUR ---
SUMMARY THROUGHOUT DAY, PT HAS MOSTLY REFUSED BIPAP. MULTIPLE ATTEMPTS TO EDUCATE AND PT AGREEABLE SOMETIMES. PT HAS WORN IT APPROX 25% OF THE SHIFT. VITALS STABLE WITH EXCEPTION OF SVT EPISODES THIS EVENING. PENDING REPEAT LABS. PENDING GUIAC STOOL. APPROX 100 ML OF DARK, LIQUID STOOL IN RECTAL TUBE TODAY ALONG WITH 2 LARGE INCONTINENT STOOLS. GOOD OUTPUT FROM URINARY CATHETER. PT TOLERATING TURNS AND ADL'S. PT SOMEWHAT ANXIOUS AND FORGETFUL REGARDING PLAN OF CARE, PT HAS BEEN EDUCATED EXTENSIVELY THROUGHOUT DAY ON ALL ACTIVITIES INCLUDING LABS, ADL'S AND ASKS THE SAME QUESTIONS MULTIPLE TIMES BEFORE STAFF CAN LEAVE ROOM. ATTEMPT TO BUNDLE CARE AND ANSWER ALL QUESTIONS AND DO ALL ADL'S BEFORE LEAVING BEDSIDE, AND PT IMMEDIATELY ASKING FOR REPEAT REQUESTS STAFF IS LEAVING ROOM, OR CALLING SHORTLY AFTER. ATTEMPTED TO EDUCATE ON USE OF CALL LIGHT AND BUNDLING CARE. PT HAS BEEN ORIENTED X4. PT'S DAUGHTER IN LAW AT BEDSIDE AND UNDERSTANDING, AGREEABLE TO ASSIST PATIENT IN BUNDLING QUESTIONS AND CARE REQUESTS FOR NURSE ROUNDING. PT HAS HAD FAMILY AT BEDSIDE MAJORITY OF DAY.
--- NOTE | 2019-11-08 21:00 | NUR ---
ASSUMPTION OF CARE ASSUMED CARE OF PT @ 1900, PT AWAKE IN BED INTERACTING WITH VISITORS, ORIENTED TO SELF, EVENT, PLACE AND FOLLOWING DIRECTIONS. PT ON BIPAP TO MAINTAIN O2>90%, SEE FLOWSHEET. PT WITH VERY WEAK COUGH, NON PRODUCTIVE. MONITOR SHOWS SINUS RHYTHM, IRREGULAR, TRANSIENT SVT (SEE PTS CHART), BP STABLE. PT ON PRECEDEX GTT @ 0.4, TITRATED FOR TOLERANCE OF BIPAP. PT NPO EXCEPT FOR MEDICATIONS, CRUSHED IN PUDDING. PT COMPLAINS OF MILD NAUSEA, PRN ZOFRAN PROVIDED. RECTAL TUBE IN PLACE, DRAINING LIQUID DARK BROWN/BLACK STOOL. PEDRAZA IN PLACE, LITTLE OUTPUT NOTED. CALL LIGHT WITHIN REACH.
--- NOTE | 2019-11-09 02:28 | NUR ---
CODE BLUE CODE ACTIVATED @ 0149, PT HR HAD DECREASED TO 40'S, PT NOT AROUSABLE, ASSISTED VENTILATIONS INITIATED, DR BUENO TO ROOM, CAROTID PULSE PALPATED, 1 AMP EPI ADMINISTERED. PT INTUBATED @ 0152, JUNCTIONAL RHYTHM ON MONITOR. LEVO GTT INITIATED @ 0200, STARTED @ 10mcg/min, UNABLE TO PALPATE CAROTID PULSES AT THIS TIME, SECOND AMP OF EPI ADMINISTERED @ 0206. UNABLE TO DOPPLER PULSES, SONOSITE TO ROOM, BEDSIDE ULTRASOUND BY DR BUENO, TIME OF 208 CONFIRMED BY ABSENCE OF CAROTID PULSES VIA US.
[2019-11-09 14:31] LABS: Stool Occult Blood Guaiac 1 Pos (Neg)
== END 2019-11-09 02:09 | DRG 871 ==
LOC: ER 10:13 → ICUW 13:29
PROVIDERS: Emergency Medicine; Internal Medicine Critical Care Medicine; Internal Medicine Pulmonary Disease; Pharmacist; ADMIT Hospitalist
PROC: 5A09357 Assistance with Respiratory Ventilation, Less than 24 Consecutive Hours, Continuous Positive Airway Pressure (ICD-10-PCS; principal; 2019-11-04)
PROC: 5A1935Z Respiratory Ventilation, Less than 24 Consecutive Hours (ICD-10-PCS; 2019-11-09)
PROC: 0BH18EZ Insertion of Endotracheal Airway into Trachea, Via Natural or Artificial Opening Endoscopic (ICD-10-PCS; 2019-11-09)
PROC: 3E033XZ Introduction of Vasopressor into Peripheral Vein, Percutaneous Approach (ICD-10-PCS; 2019-11-09)
DX: A41.9 Sepsis, unspecified organism (principal); J96.21 Acute and chronic respiratory failure with hypoxia; R65.21 Severe sepsis with septic shock; J18.9 Pneumonia, unspecified organism; J82 Pulmonary eosinophilia, not elsewhere classified; I25.10 Atherosclerotic heart disease of native coronary artery without angina pectoris; E11.9 Type 2 diabetes mellitus without complications; I27.20 Pulmonary hypertension, unspecified; F32.9 Major depressive disorder, single episode, unspecified; Z86.73 Personal history of transient ischemic attack (TIA), and cerebral infarction without residual deficits; I50.810 Right heart failure, unspecified; I11.0 Hypertensive heart disease with heart failure; E87.6 Hypokalemia; D64.9 Anemia, unspecified; Z79.82 Long term (current) use of aspirin; Z79.02 Long term (current) use of antithrombotics/antiplatelets; E83.42 Hypomagnesemia; I46.9 Cardiac arrest, cause unspecified
CPT/HCPCS: 0099U; 31500; 36415; 36569; 36600; 71045; 71046; 71250; 80048; 80053; 80202; 81001; 82270; 82607; 82746; 82803; 82947; 83540; 83550; 83605; 83735; 83880; 84100; 84132; 84484; 85025; 85045; 85610; 87040; 92610; 93005; 93010; 93308; 93321; 94002; 94640; 94660; 96365; 96366; 96368; 96372-59; 99285-25; A9270-GY; C1751; J0461; J1450; J1650; J1940; J2405; J2543; J2930; J3370; J3480; J7030; J7050